=== PATIENT | male | born 1975 | race Caucasian/White ===

== ENCOUNTER 2024-03-18 09:33 | Outpatient (CLI) | payer BC, SELFPAY ==
[2024-03-18 18:35] LABS: Alanine Aminotransferase 60 U/L (12-78); Albumin Level 4.3 g/dl (3.5-5.0); Albumin/Globulin Ratio 1.6 (1.1-1.8); Alkaline Phosphatase 77 U/L (38-126); Anion Gap 14.9 mEq/L (5-15); Aspartate Amino Transferase 34 U/L (17-59); Bilirubin,Total 1.7 mg/dl (0.2-1.3); Blood Urea Nitrogen 19 mg/dl (9-20); Calcium 9.6 mg/dl (8.4-10.2); Carbon Dioxide 22 mmol/L (22.0-30.0); Chloride 104 mmol/L (98-107); Cholesterol 204 mg/dl (140-200); Estimated Glomerular Filt Rate 71 ml/min (>60); GFR (African American) 86 ML/MIN (>60); Globulin 2.7 g/dL (1.3-3.2); Glucose 158 mg/dl (74-100); HDL Cholesterol 34 mg/dl (40-60); Potassium 3.9 mmoL/L (3.5-5.1); Sodium 137 mmol/L (136-145)
[2024-03-18 18:40] LABS: Triglycerides 431 mg/dl (30-150)
[2024-03-18 18:46] LABS: Direct LDL Cholesterol 73.18 mg/dL (100-129)
[2024-03-18 18:49] LABS: Microalbumin/Creatinine Ratio 8.2
[2024-03-18 18:57] LABS: Creatinine,Urine Random 180 mg/dL (Not Estab.)
[2024-03-18 19:06] LABS: Thyroid Stimulating Hormone 2.92 uIU/mL (0.465-4.68)
== END 2024-03-18 23:59 | disposition home or self-care (01) ==
LOC: LAB.DROPOF 03-19 09:34
PROVIDERS: PCP Family Medicine; Visit Provider Family Medicine
DX: E11.9 Type 2 diabetes mellitus without complications (principal); Z79.84 Long term (current) use of oral hypoglycemic drugs; Z79.85 Long-term (current) use of injectable non-insulin antidiabetic drugs; I10 Essential (primary) hypertension; E66.9 Obesity, unspecified; Z68.39 Body mass index [BMI] 39.0-39.9, adult
CPT/HCPCS: 80053; 80061; 82043; 82570; 84443

== ENCOUNTER 2024-03-27 18:07 | Outpatient (CLI) | payer BC, SELFPAY ==
[2024-03-27 18:49] LABS: Anion Gap 17.9 mEq/L (5-15); Blood Urea Nitrogen 29 mg/dl (9-20); Calcium 9.7 mg/dl (8.4-10.2); Carbon Dioxide 23 mmol/L (22.0-30.0); Chloride 100 mmol/L (98-107); Estimated Glomerular Filt Rate 59 ml/min (>60); GFR (African American) 71 ML/MIN (>60); Glucose 165 mg/dl (74-100); Potassium 3.9 mmoL/L (3.5-5.1); Sodium 137 mmol/L (136-145)
== END 2024-03-27 23:59 | disposition home or self-care (01) ==
LOC: LAB.DROPOF 18:08
PROVIDERS: PCP Family Medicine; Visit Provider Family Medicine
DX: I10 Essential (primary) hypertension (principal)
CPT/HCPCS: 80048

== ENCOUNTER 2024-04-15 10:05 | Outpatient (CLI) | payer BC, SELFPAY ==
[2024-04-15 19:41] LABS: Anion Gap 15.4 mEq/L (5-15); Blood Urea Nitrogen 21 mg/dl (9-20); Calcium 9.8 mg/dl (8.4-10.2); Carbon Dioxide 25 mmol/L (22.0-30.0); Chloride 103 mmol/L (98-107); Estimated Glomerular Filt Rate 54 ml/min (>60); GFR (African American) 65 ML/MIN (>60); Glucose 139 mg/dl (74-100); Potassium 4.4 mmoL/L (3.5-5.1); Sodium 139 mmol/L (136-145)
== END 2024-04-15 23:59 | disposition home or self-care (01) ==
LOC: LAB.DROPOF 04-16 10:06
PROVIDERS: PCP Family Medicine; Visit Provider Family Medicine
DX: I10 Essential (primary) hypertension (principal); E66.9 Obesity, unspecified; Z68.39 Body mass index [BMI] 39.0-39.9, adult
CPT/HCPCS: 80048

== ENCOUNTER 2024-07-14 19:49 | Outpatient (CLI) | payer BC, SELFPAY ==
[2024-07-14 20:49] LABS: Alanine Aminotransferase 25 U/L (12-78); Albumin Level 4.2 g/dl (3.5-5.0); Albumin/Globulin Ratio 1.7 (1.1-1.8); Alkaline Phosphatase 68 U/L (38-126); Anion Gap 15.5 mEq/L (5-15); Aspartate Amino Transferase 24 U/L (17-59); Bilirubin,Total 1.7 mg/dl (0.2-1.3); Blood Urea Nitrogen 18 mg/dl (9-20); Carbon Dioxide 20 mmol/L (22.0-30.0); Chloride 107 mmol/L (98-107); Chol/HDL Ratio 4.3 (1-3.5); Cholesterol 137 mg/dl (140-200); Estimated Glomerular Filt Rate 71 ml/min (>60); GFR (African American) 86 ML/MIN (>60); Globulin 2.5 g/dL (1.3-3.2); Glucose 110 mg/dl (74-100); HDL Cholesterol 32 mg/dl (40-60); Potassium 4.5 mmoL/L (3.5-5.1); Sodium 138 mmol/L (136-145); Total Protein,Serum 6.7 g/dl (6.3-8.2); Triglycerides 176 mg/dl (30-150); VLDL Cholesterol 35 mg/dL (0-40)
[2024-07-14 20:59] LABS: Direct LDL Cholesterol 72.81 mg/dL (100-129)
[2024-07-14 21:17] LABS: Prostate Specific Ag Screen 1.2 ng/ml (0.0-4.0)
[2024-07-14 21:36] LABS: Hemoglobin A1C 5.8 % (4.0-6.0)
== END 2024-07-14 23:59 | disposition home or self-care (01) ==
LOC: LAB.DROPOF 19:51
PROVIDERS: PCP Family Medicine; Visit Provider Family Medicine
DX: E11.69 Type 2 diabetes mellitus with other specified complication (principal); Z12.5 Encounter for screening for malignant neoplasm of prostate; Z79.85 Long-term (current) use of injectable non-insulin antidiabetic drugs; Z79.84 Long term (current) use of oral hypoglycemic drugs
CPT/HCPCS: 80053; 80061; 83036; G0103

== ENCOUNTER 2024-09-11 08:37 | Day surgery (SDC) | payer BC, SELFPAY ==
[2024-09-09 12:50] VITALS: BMI 38.4
[2024-09-11 09:15] VITALS: BP 146/94; PULSE 86; RESP 16; TEMP 36.4; O2SAT 98
[2024-09-11] MEDS: LACTATED RINGERS 1000ML 1,000 ML 25 ML IV (09:24)
--- NOTE | 2024-09-11 10:17 | P.HP_ITS ---
History of Present Illness *Admission Date: 09/11/24 *Reason for visit:: Personal history of adenomatous colon polyps *History of present illness: Mr. Beyer is a 49-year-old gentleman with a personal history of adenomatous colon polyps and last colonoscopy just over 5 years ago who is here for surveillance colonoscopy. The examination is deemed medically necessary for surveillance colonoscopy. The patient has been seen, interviewed and examined prior to the procedure by both myself and the anesthesia provider. [facility] Disclaimer: The information contained in this section may have been updated after the patient was seen, as this information can be updated by other users. Medical History (Updated 09/11/24 @ 09:22 by Madina Pennington RN) History of COVID-19 Kidney stones Hyperlipidemia associated with type 2 diabetes mellitus Colonic polyp Obesity Hypertension Diabetes mellitus type II, controlled Surgical History H/O colonoscopy History of appendectomy History of cholecystectomy Family History (Updated 09/11/24 @ 09:22 by Madina Pennington RN) Other Prostate cancer Social History (Updated 09/11/24 @ 09:23 by Madina Pennington, RN) Smoking Status: Never smoker alcohol intake: never substance use type: denies use current occupational status: employed Travel in the last 8 weeks: None household members: spouse and children marital status: number of children: 5 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[employer], 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 [employer]: Yes Have you lived/traveled outside [place] in past 30 days?: No Contact w/someone who lives/traveled outside US past 30 days?: No Exposure to someone with infectious disease in past 14 days?: No Do you have a fever (greater than 100.4 F or 38 C)?: No Have you tested positive for COVID-19: No Exposed to someone with COVID-19 in past 14 days?: No Do you have a sore throat?: No Do you have a cough?: No Do you have any weakness?: No Are you experiencing any nausea/vomitting?: No Do you have any diarrhea?: No Are you experiencing any unusual bleeding?: No Do you have any muscle aches/pain?: No Do you have any abdominal pain?: No Are you experiencing loss of taste or smell?: No Other Medical History Have you received the Pneumonia Vaccine: No Review of Systems Review of Systems Review of systems (narrative): Negative *Cardiovascular Comments: Negative *Gastrointestinal Comments: Negative *Genitourinary Comments: Negative *Musculoskeletal Comments: Negative *Neurologic Comments: Negative Meds Home Medications and Allergies Home Medications ?Medication ?Instructions ?Recorded ?Confirmed ?Type atorvastatin 40 mg tablet (Lipitor) 40 mg PO DAILY #90 tabs 04/15/24 09/11/24 Rx lisinopril 20 mg tablet 20 mg PO DAILY #90 tabs 04/15/24 09/11/24 Rx semaglutide (weight loss) 0.5 0.5 mg (0.5 mL) SQ WEEKLY #6 mL 04/15/24 09/11/24 Rx mg/0.5 mL subcutaneous pen injector nebivolol 20 mg tablet 20 mg PO DAILY 07/15/24 09/11/24 History metformin 500 mg tablet 1,000 mg (2 x 500 mg) PO BID 30 08/18/24 09/11/24 Rx days #120 tabs sod picosulf 10 mg-magnes 3.5 175 ml PO DAILY Bowel Prep 2 doses 09/01/24 09/11/24 Rx gram-citric 12 gram/175 mL oral #350 mL solution (Clenpiq) New Prescriptions to Start Prescriptions: Allergies Allergy/AdvReac Type Severity Reaction Status Date / Time No Known Allergies Allergy Verified 09/11/24 09:13 Exam Data for Last 24 hours Vital signs and Labs for Last 24 Hours: Temp Pulse Resp BP Pulse Ox O2 Del Method 97.5 F L 86 16 146/94 H 98 Room Air 09/11/24 09:15 09/11/24 09:15 09/11/24 09:15 09/11/24 09:15 09/11/24 09:15 09/11/24 09:15 I & O for Last 24 hours: Intake & Output 09/08/24 09/09/24 09/10/24 09/11/24 23:59 23:59 23:59 23:59 Weight 260 lb *Routine HEENT Exam Head: Present normocephalic Eye: Present EOMI and PERRL ENT: Present mucous membranes moist *Routine Neck Exam Neck: Present supple *Routine Respiratory Exam Respiratory: Present CTA bilaterally *Routine Cardiovascular Exam Cardiovascular: Present RRR *Routine Abdominal Exam Abdominal: Present soft and normoactive bowel sounds; Absent tenderness *Routine Rectal Exam Rectal:: deferred *Routine Genitalia Exam Genitalia:: deferred *Routine Extremities Exam Extremities: Absent cyanosis, clubbing or edema *Routine Skin Exam Skin: Present warm; Absent rash *Routine Neurological Exam Neurological: Present alert and oriented X3 Assessment and Plan *Assessment and plan (1) Personal history of adenomatous and serrated colon polyps: Status: Acute Category: Medical Code(s): Z86.0101 - Personal history of adenomatous and serrated colon polyps Plan A/P: 1. Personal history of adenomatous colon polyps is the preprocedural diagnosis. The patient will be anesthetized/sedated using MAC sedation. The patient has been seen and examined. Cardiac and lung assessment prior to the examination is stable. Proceed with planned surveillance colonoscopy
--- NOTE | 2024-09-11 10:19 | P.PCN_ITS ---
[facility] Procedure Note Date: 09/11/24 Time: 10:42 Procedure Note:: Colonoscopy Procedure Report: Colonoscopy with cold snare polypectomy Endoscopist: Rob Dominguez II, MD Referring physician: Ganga Nance MD Date of Procedure: September 11, 2024 Equipment: Olympus 190 variable stiffness pediatric colonoscope Sedation: MAC sedation Indication: Mr. Beyer is a 49-year-old gentleman who is here for follow-up surveillance colonoscopy secondary to a personal history of adenomatous colon polyps. He had a colonoscopy in [place] (Reza Mclaughlin MD) 5 years ago at which time 3 polyps (tubular adenomas x 3) were removed. He does get some bowel irregularity with alternating diarrhea and constipation with some incomplete defecation. He does have a prior history of diverticulitis. He did have 1 bout of bright red rectal bleeding 6 months ago. He is trying to lose weight and had been on Ozempic. He has had prior cholecystectomy and appendectomy. He reports no mucus with his bowel movements and has no family history of colon cancer. His father and grandfather had prostate cancer. Procedure: Prior to the procedure, a history and physical exam was performed, and patient's medications and allergies were reviewed. The risks, benefits and alternatives of the sedation and procedure were discussed with the patient. All questions were answered and informed consent was obtained. The patient was brought to the procedure room. Patient identification and proposed procedure were verified by the physician and the nurse. The patient was placed in a left lateral decubitus position and the scope was passed under direct vision. Throughout the procedure, the patient's blood pressure, pulse, and oxygen saturations were monitored continuously. The colonoscopy was accomplished without difficulty. The patient tolerated the procedure well. Findings: On digital rectal examination there was normal rectal tone. There were no external hemorrhoids. The prostate was 2+, smooth, soft, symmetric without nodules. The colonoscope was introduced through the anal canal to the rectum and advanced to the cecum. The ileocecal valve and appendiceal orifice were identified. The scope was advanced a short distance into the ileum which appeared grossly normal. The scope was then withdrawn into the colon. There were 5 colon polyps (ascending x 1 (5 mm), transverse x 1 (4 mm), descending x 1 (5 mm) and rectal x 2 (3 and 5 mm). These were all removed via cold snare polypectomy. The remaining cecum, ascending and transverse colon and mucosa were grossly normal. There were scattered diverticuli throughout the descending and sigmoid colon (LEFT colon). The rectum itself was normal. Upon retroflexion within the rectum there were grade 2 internal hemorrhoids. The preparation was excellent throughout with Preemption Preparation Score of 9. The cecal time was 12 minutes. Impression: 1. Diminutive colonic polyps x 5 2. Left-sided diverticulosis 3. Grade 2 internal hemorrhoids Plan: I will follow-up the polyp histology and recommend repeat surveillance colonoscopy again in 3 to 5 years based upon pathology. I would encourage continuation of bulking fiber supplementation (psyllium/Konsyl) on a maintenance basis. I would continue the dietary measures as well.
--- NOTE | 2024-09-11 10:23 | EXP.ANES.CKL ---
[facility] Disclaimer: The information contained in this section may have been updated after the patient was seen, as this information can be updated by other users. Medical History (Updated 09/11/24 @ 09:22 by Madina Pennington RN) History of COVID-19 Kidney stones Hyperlipidemia associated with type 2 diabetes mellitus Colonic polyp Obesity Hypertension Diabetes mellitus type II, controlled Surgical History H/O colonoscopy History of appendectomy History of cholecystectomy Family History (Updated 09/11/24 @ 09:22 by Madina Pennington RN) Other Prostate cancer Social History (Updated 09/11/24 @ 09:23 by Madina Pennington RN) Smoking Status: Never smoker alcohol intake: never substance use type: denies use current occupational status: employed Travel in the last 8 weeks: None household members: spouse and children marital status: number of children: 5 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[employer], 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 [employer]: Yes Have you lived/traveled outside [place] in past 30 days?: No Contact w/someone who lives/traveled outside [place] past 30 days?: No Exposure to someone with infectious disease in past 14 days?: No Do you have a fever (greater than 100.4 F or 38 C)?: No Have you tested positive for COVID-19: No Exposed to someone with COVID-19 in past 14 days?: No Do you have a sore throat?: No Do you have a cough?: No Do you have any weakness?: No Are you experiencing any nausea/vomitting?: No Do you have any diarrhea?: No Are you experiencing any unusual bleeding?: No Do you have any muscle aches/pain?: No Do you have any abdominal pain?: No Are you experiencing loss of taste or smell?: No [facility] Anesthesia Checklist Patient Identification Patient Identification: Arm Band Structural Data Admitted From: Home Planned Operative Procedure/s: Colonoscopy Consent for Planned Operative Procedure(s) Verified: Yes Verified Documents: Surgical Consent and History and Physical NPO Status Verified Time NPO: 00:00 Additional verifications Anesthesia Reactions: No Airway Assessment Mallampati Score:: Class II C-Spine Mobility Assessed: Yes TMJ Mobility Assessed: Yes Dentition: Good Dentition Neurological Assessment Level of Consciousness: Awake, Alert and Appropriate Anesthesia Plan Anesthesia Risk discussed: Yes Anesthesia Plan: Verified ASA Class: III Anesthesia Type: MAC
[2024-09-11 10:24] VITALS: O2SAT 100
[2024-09-11 10:45] VITALS: BP 132/74; PULSE 93; RESP 18; TEMP 36.5; O2SAT 93
[2024-09-11 10:55] VITALS: BP 123/72; PULSE 93; RESP 18; O2SAT 93
[2024-09-11 11:04] VITALS: BP 137/84; PULSE 90; RESP 18; O2SAT 97
[2024-09-11 11:24] VITALS: BP 152/90; PULSE 90; RESP 18; O2SAT 97
[2024-09-11 16:44] LABS: POC Glucose,Bedside 142 (70-110)
== END 2024-09-11 11:50 | disposition home or self-care (01) ==
PROVIDERS: PCP Family Medicine; Visit Provider Internal Medicine Gastroenterology
PROC: (CPT 45385; principal; 2024-09-11 10:00)
DX: K63.5 Polyp of colon (principal); K57.30 Diverticulosis of large intestine without perforation or abscess without bleeding; K64.1 Second degree hemorrhoids; Z86.0101 Personal history of adenomatous and serrated colon polyps
CPT/HCPCS: 45385; 82962; J7120

== ENCOUNTER 2024-10-10 06:58 | Observation (INO) | payer BC, SELFPAY ==
[2024-10-10] VITALS (11 sets, daily range): BP systolic 105–136; BP diastolic 51–97; PULSE 83–100; RESP 14–20; TEMP 36.6–37.1; O2SAT 96–99; BMI 38.4; BMI 39.6
--- NOTE | 2024-10-10 07:10 | CT_ITS ---
FINAL REPORT TECHNIQUE: IV contrast enhanced exam This study was performed with techniques to keep radiation doses as low as reasonably achievable, (ALARA). Individualized dose reduction techniques using automated exposure control or adjustment of mA and/or kV according to the patient's size were employed. CLINICAL HISTORY: LLW pain tender COMPARISON: None FINDINGS: CT ABDOMEN PELVIS WITH CONTRAST: Abdomen: The gallbladder is absent and has been surgically resected. Liver has an unremarkable CT appearance. The spleen, pancreas and adrenal glands are unremarkable. There are nonobstructing renal stones noted bilaterally. There are also bilateral renal cysts noted. There are fluid-filled borderline dilated loops of jejunum, suspect ileus. Pelvis: There are significant inflammatory changes surrounding the descending/sigmoid colonic junction, centered around a dominant diverticulum, which measures 10 mm. IMPRESSION: Wall thickening and inflammatory changes in the distal colon, most likely secondary to diverticulitis. Recommend follow-up colonoscopy or CT. Fluid-filled borderline dilated small bowel, compatible with ileus. Reviewed, Interpreted and Dictated by Lawrence Figueroa MD Transcribed by Eliza Ordonez Authenticated and . [facility]
--- NOTE | 2024-10-10 07:11 | ED_ITS ---
Discharge Plan Disposition Chief Complaint: Abdominal Pain Prescriptions Prescriptions: No Action lisinopril 20 mg tablet 20 mg PO DAILY Qty: 90 3RF atorvastatin [Lipitor] 40 mg tablet 40 mg PO DAILY Qty: 90 3RF nebivolol 20 mg tablet 20 mg PO DAILY metformin 500 mg tablet 1,000 mg PO BID 30 Days Qty: 120 2RF Clenpiq 10 mg-3.5 gram- 12 gram/175 mL solution 175 ml PO DAILY 0 Days Qty: 350 0RF Rx Instructions: take first dose at 5-9PM evening before colonoscopy; 2nd dose the next day approximately 5 hrs before colonoscopy semaglutide (weight loss) 0.5 mg/0.5 mL pen injector 0.5 mg SQ WEEKLY Qty: 6 3RF metformin 500 mg tablet 1,000 mg PO BID Patient Comments: TAKE 2 TABLETS BY MOUTH TWICE DAILY Referrals Follow up/Referrals: Ganga Nance MD [Primary Care Provider] - See instructions Instructions Patient Instructions: DI for Acute Abdominal Pain Print Language Print Language: Thai Discharge ED Provider: Jasson Carrillo General Adult HPI General Chief complaint: Abdominal Pain Stated complaint: abd pain, history of diverticulitis Time Seen by Provider: 10/10/24 07:10 History of Present Illness HPI narrative: Patient is a 49-year-old male with past medical history of previous diverticulitis 10 years ago, recent colonoscopy last month at this institution who presents emergency department for evaluation of left lower quadrant abdominal pain. Onset was acute, over the last 24 hours, it is worse when he pushes on it. No vomiting, normal stooling. No dysuria reported. No other acute complaints at this time. Please note that above description of symptoms, in this electronic medical record under categorization of recalled from ER triage doctor by RN are reflective of an initial nursing assessment, however, is not reflective of my full history and physical exam that was personally taken and clarified. Consequentially, this preceding description of symptoms, which may include the patient's categorized chief complaint in the EMR, do not reflect my personal clinical impression, and the ultimate description of history of present illness and patient stated complaints should be deferred to this section of the note. Unless stated otherwise or congruent with this section of the note, additional signs, symptoms, or incongruence should be interpreted as inaccurate with my clinical impression. Related Data Home Medications ?Medication ?Instructions ?Recorded ?Confirmed nebivolol 20 mg tablet 20 mg PO DAILY 07/15/24 10/10/24 metformin 500 mg tablet 1,000 mg PO BID 10/10/24 10/10/24 Previous Rx's ?Medication ?Instructions ?Recorded atorvastatin 40 mg tablet (Lipitor) 40 mg PO DAILY #90 tabs 04/15/24 lisinopril 20 mg tablet 20 mg PO DAILY #90 tabs 04/15/24 metformin 500 mg tablet 1,000 mg (2 x 500 mg) PO BID 30 08/18/24 days #120 tabs sod picosulf 10 mg-magnes 3.5 175 ml PO DAILY Bowel Prep 2 doses 09/01/24 gram-citric 12 gram/175 mL oral #350 mL solution (Clenpiq) semaglutide (weight loss) 0.5 0.5 mg (0.5 mL) SQ WEEKLY #6 mL 10/01/24 mg/0.5 mL subcutaneous pen injector Allergies Allergy/AdvReac Type Severity Reaction Status Date / Time No Known Allergies Allergy Verified 10/10/24 07:19 [facility] Disclaimer: The information contained in this section may have been updated after the patient was seen, as this information can be updated by other users. Medical History (Updated 09/17/24 @ 19:21 by Ganga Nance MD) Tubular adenoma of colon History of COVID-19 Kidney stones Hyperlipidemia associated with type 2 diabetes mellitus Colonic polyp Obesity Hypertension Diabetes mellitus type II, controlled Surgical History H/O colonoscopy History of appendectomy History of cholecystectomy Family History (Updated 09/11/24 @ 09:22 by Madina Pennington, MARIIA) Other Prostate cancer Social History Smoking Status: Never smoker alcohol intake: never substance use type: denies use current occupational status: employed Travel in the last 8 weeks: None household members: spouse and children marital status: number of children: 5 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[employer], 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 caffeine: Yes Have you lived/traveled outside [place] in past 30 days?: No Contact w/someone who lives/traveled outside US past 30 days?: No Exposure to someone with infectious disease in past 14 days?: No Do you have a fever (greater than 100.4 F or 38 C)?: No Have you tested positive for COVID-19: No Exposed to someone with COVID-19 in past 14 days?: No Do you have a sore throat?: No Do you have a cough?: No Do you have any weakness?: No Do you have any diarrhea?: No Are you experiencing any unusual bleeding?: No Do you have any muscle aches/pain?: No Do you have any abdominal pain?: Yes Are you experiencing loss of taste or smell?: No Other Medical History Have you received the Pneumonia Vaccine: No ROS Obtained: Yes Systems reviewed as appropriate & no additional complaints except as documented Physical Exam General General appearance: alert and in no apparent distress Head Head exam: atraumatic and normocephalic Eye Eye exam: Present PERRL ENT ENT exam: Present mucous membranes moist Neck Neck exam: Present normal inspection Chest Chest inspection: Present normal inspection and symmetric chest wall rise Respiratory Respiratory exam: Present normal lung sounds bilaterally; Absent respiratory distress Cardiovascular Cardiovascular exam: Present regular rate and normal rhythm Abdominal Exam Abdominal exam: Present soft, tenderness (Left lower quadrant) and guarding (Voluntary); Absent distention, rebound or rigidity Extremities Exam Extremities exam: Present normal inspection Neurological Exam Neurological exam: Present alert Psychiatric Psychiatric exam: Present normal affect Skin Skin exam: Present warm and dry Medical Decision Making Medical Records Screening: Per USPSTF and CDC recommendations, given the prevalence of disease in our region, it is our hospital?s policy to screen for HIV and viral Hepatitis for all patients aged 18 and over and those with ongoing risk factors. Davian Inquiry Pt receiving controlled substance: No Vital Signs: 10/10/24 07:08 10/10/24 07:17 10/10/24 07:30 Temperature 98 F Temperature Source Oral Pulse Rate 100 H 93 H Pulse Rate [Left] 94 H Respiratory Rate 14 20 Blood Pressure 136/97 H Blood Pressure [Right Arm] 136/97 H Blood Pressure Mean Blood Pressure Mean [Right Arm] 110 Blood Pressure Source [Right Arm] Automatic Cuff Blood Pressure Position [Right Arm] Sitting 02 Sat by Pulse Oximetry 99 99 99 Oxygen Delivery Method Room Air 10/10/24 07:30 10/10/24 08:00 10/10/24 08:10 Temperature Temperature Source Pulse Rate 92 H Pulse Rate [Left] Respiratory Rate Blood Pressure 120/84 109/77 L 109/77 L Blood Pressure [Right Arm] Blood Pressure Mean 96 87 Blood Pressure Mean [Right Arm] Blood Pressure Source [Right Arm] Blood Pressure Position [Right Arm] 02 Sat by Pulse Oximetry 98 Oxygen Delivery Method 10/10/24 08:30 10/10/24 09:00 Temperature Temperature Source Pulse Rate 91 H 89 Pulse Rate [Left] Respiratory Rate Blood Pressure 113/83 118/79 Blood Pressure [Right Arm] Blood Pressure Mean 91 90 Blood Pressure Mean [Right Arm] Blood Pressure Source [Right Arm] Blood Pressure Position [Right Arm] 02 Sat by Pulse Oximetry 98 97 Oxygen Delivery Method Lab Data Lab Results 10/10/24 07:17: WBC 18.1 H, RBC 5.00, Hgb 14.7, Hct 40.8 L, MCV 81.6, MCH 29.4, MCHC 36.0 H, RDW 13.1, Plt Count 215, MPV 9.8, Neut % (Auto) 73.6, Lymph % (Auto) 15.3, [place] % (Auto) 9.0, Eos % (Auto) 1.4, Baso % (Auto) 0.3, Neut # (Auto) 13.3 H, Lymph # (Auto) 2.8, [place] # (Auto) 1.6 H, Eos # (Auto) 0.3, Baso # (Auto) 0.1, Total Counted 100, Neutrophils % (Manual) 66, Band Neutrophils % 5.0, Lymphocytes % (Manual) 15, Monocytes % (Manual) 13 H, Eosinophils % (Manual) 1, Platelet Estimate Normal, RBC Morphology Normal, Sodium 134 L, Potassium 4.0, Chloride 101, Carbon Dioxide 24, Anion Gap 13.0, BUN 15, Creatinine 1.20, Estimated Creat Clear 124, Estimated GFR 64, Est GFR ( Amer) 78, Glucose 162 H, Calcium 8.6, Total Bilirubin 2.5 H, AST 22, ALT 27, Alkaline Phosphatase 65, Total Protein 7.2, Albumin 4.5, Globulin 2.7, Albumin/Globulin Ratio 1.7, Lipase 120 10/10/24 07:21: Lactate 1.5 10/10/24 07:47: Urine Color Yellow, Urine Appearance Clear, Urine pH 6.0, Ur Specific [place] 1.010, Urine Protein Negative, Urine Glucose (UA) Negative, Urine Ketones Negative, Urine Blood Negative, Urine Nitrate Negative, Urine Bilirubin Negative, Urine Urobilinogen 0.2, Ur Leukocyte Esterase Negative, Urine RBC None, Urine WBC Occasional, Ur Squamous Epith Cells Occasional, Urine Bacteria None 10/10/24 07:17 10/10/24 07:17 Orders (Tests/Meds): ED MEDICATIONS Generic Name Dose Route Start Last Admin Trade Name Freq PRN Reason Stop Dose Admin Lactated Ringer's 1,000 mls @ 999 mls/hr 10/10/24 08:42 10/10/24 08:47 Lactated Ringer's 1000 Ml Bag IV 10/10/24 09:42 999 mls/hr .Q1H1M ONE Administration Sodium Chloride 10 ml 10/10/24 08:09 Sodium Chloride 0.9% 10ml Syr (Rad Only) IV 11/09/24 08:08 NEEDED PRN Maintain IV Site Discontinued Medications Generic Name Dose Route Start Last Admin Trade Name Freq PRN Reason Stop Dose Admin Piperacillin Sod/Tazobactam 100 mls @ 200 mls/hr 10/10/24 08:42 10/10/24 09:20 Sod 4.5 gm/ Sodium Chloride IV 10/10/24 09:11 200 mls/hr ONCE ONE Administration Iopamidol 75 ml 10/10/24 08:09 10/10/24 08:10 Iopamidol-370 (76%);100ml Bottle IV 10/10/24 08:10 75 ml ONCE ONE Administration Ketorolac Tromethamine 30 mg 10/10/24 07:10 10/10/24 07:24 Ketorolac 30mg/Ml Vial IV 10/10/24 07:11 30 mg ONCE ONE Administration Morphine Sulfate 4 mg 10/10/24 07:10 10/10/24 07:24 Morphine 4mg/Ml Syringe IV 10/10/24 07:11 4 mg ONCE ONE Administration Ondansetron HCl 4 mg 10/10/24 07:10 10/10/24 07:24 Ondansetron 4mg/2ml Vial IV 10/10/24 07:11 4 mg ONCE ONE Administration ORDERS Category Date Time Status CT abdomen pelvis w con Stat Cat Scan 10/10/24 07:10 Completed CBC w/Auto Diff [Complete Blood Count Auto Diff] Stat Lab 10/10/24 07:17 Completed CMP [Comprehensive Metabolic Panel] Stat Lab 10/10/24 07:17 Completed HIV Combo Stat Lab 10/10/24 07:17 Received Hepatitis C Ab Qual. W/ RFX Stat Lab 10/10/24 07:17 Received Lactic Acid Stat Lab 10/10/24 07:21 Completed Lipase Stat Lab 10/10/24 07:17 Completed UA [Urinalysis and Microscopic] Stat Lab 10/10/24 07:47 Completed Blood Culture Stat Micro 10/10/24 08:51 Received Medical Decision Narrative: In summary patient is a 49-year-old male past medical history described above who presents emergency department for evaluation of left lower quadrant abdominal pain. Patient is hemodynamically stable nontoxic-appearing upon arrival, afebrile. Patient is tender in his left lower quadrant on my exam and has a history of previous diverticulitis however he has recent colonic endoscopic evaluation as well. Differential includes diverticulitis, constipation, among others. Workup will be conducted with hematologic labs, CT abdomen pelvis IV contrast, urinalysis. Initial inventions include multimodal pain control. Patient appears largely euvolemic on my exam although aggressive sepsis bolus resuscitation was considered but we deferred. Patient is largely euvolemic although he is slightly tachycardic will start with 1 L crystalloid. Recent gastroenterology note on 09-11-2024 reviewed shows diminutive colonic polyps, left-sided diverticulosis and grade 2 internal hemorrhoids. Initial workup reviewed by me, white blood cell count 18.1, no NICKY or critical electrolyte abnormality. Total bilirubin is elevated however it has been elevated previously no evidence of obstructive hepatopathy and patient has previous cholecystectomy will defer further workup from that standpoint at this time given that he is not tender. CT imaging informally interpreted by me, contrast enhancement and stranding in the left lower quadrant. Zosyn will be initiated at this time. Formal CT read wall thickening inflammatory changes in the distal colon secondary to diverticulitis, fluid-filled borderline dilated small bowel compatible with ileus. Patient is still stooling so he does not have a complete ileus at this time and is likely secondary to inflammation in my opinion. Given moderate severity diverticulitis with a white count of 18 patient will benefit from admission to the hospital. Case was discussed with hospitalist regarding management they will admit the patient to their service for continued evaluation at this time. Director Internal Control disclaimer Much of this encounter note is an electronic gauge machine operator spoken language to printed text. Electronic gauge machine operator of the spoken language may permit errors. Although I have reviewed the note, some errors may still exist. Critical Care Critical Care Time Critical Care Time: Yes Attestation: On 10/10/24, the high probability of a clinically significant, sudden or life threatening deterioration of the following system(s) required my full and direct attention, intervention and personal management. The time I documented below is in addition to time spent performing reported procedures but includes the following listed in this critical care notation. Total Time Total Critical Care Time: 35
[2024-10-10] MEDS: ONDANSETRON 4MG/2ML VIAL 4 MG IV (07:24)
[2024-10-10] MEDS: MORPHINE 4MG/ML SYRINGE 4 MG IV ×3 (07:24→18:35)
[2024-10-10] MEDS: KETOROLAC 30MG/ML VIAL 30 MG IV (07:24)
[2024-10-10 07:44] LABS: Basophils # 0.1 K/mm3 (0-0.2); Basophils % 0.3 % (0.1-2.0); Eosinophils # 0.3 K/mm3 (0.0-0.4); Eosinophils % 1.4 % (0.1-12.0); Hematocrit 40.8 % (42.0-52.0); Hemoglobin 14.7 g/dL (14.1-18.0); Lymphocytes # 2.8 K/mm3 (0.7-4.5); Lymphocytes % 15.3 % (10-50); Mean Corpuscular Hemoglobin 29.4 pg (27.0-31.2); Mean Corpuscular Volume 81.6 fl (80-94); Mean Platelet Volume 9.8 fl (7.4-10.4); Monocytes # 1.6 K/mm3 (0.1-1.0); Neutrophils # 13.3 K/mm3 (1.8-7.8); Neutrophils % 73.6 % (37.0-80.0); Platelet Count 215 K/mm3 (142-424); Red Cell Distribution Width 13.1 % (11.5-17.5); White Blood Count 18.1 K/mm3 (4.8-10.8)
[2024-10-10 07:48] LABS: Albumin Level 4.5 g/dl (3.5-5.0); Chloride 101 mmol/L (98-107); Sodium 134 mmol/L (136-145)
[2024-10-10 07:51] LABS: Microscopic, Urine URINE MICROSCOPIC (MICROSCOPIC)
[2024-10-10 07:51] LABS: Alanine Aminotransferase 27 U/L (12-78); Albumin/Globulin Ratio 1.7 (1.1-1.8); Alkaline Phosphatase 65 U/L (38-126); Aspartate Amino Transferase 22 U/L (17-59); Bilirubin,Total 2.5 mg/dl (0.2-1.3); Blood Urea Nitrogen 15 mg/dl (9-20); Calcium 8.6 mg/dl (8.4-10.2); Carbon Dioxide 24 mmol/L (22.0-30.0); Creatinine Clearance Estimated 124 mL/min (50-200); Estimated Glomerular Filt Rate 64 ml/min (>60); GFR (African American) 78 ML/MIN (>60); Globulin 2.7 g/dL (1.3-3.2); Glucose 162 mg/dl (74-100); Lipase 120 U/L (23-300); MANUAL DIFFERENTIAL MANUAL DIFFERENTIAL (MANUAL DIFF); Total Protein,Serum 7.2 g/dl (6.3-8.2)
--- NOTE | 2024-10-10 08:02 | PC.NURSE ---
Called radiology to let them know pt's lab have returned and he is ready for ct scan
--- NOTE | 2024-10-10 08:03 | PC.NURSE ---
Notified Dr. Carrillo that pt triggers for severe sepsis with organ dysfunction d/t elevated wbc, hr, and billirubin with a suspected infection.
[2024-10-10] MEDS: IOPAMIDOL-370 (76%);100ML BOTTLE 75 ML IV (08:10)
[2024-10-10 08:41] LABS: Eosinophils % 1 % (0-3); Lymphocytes % 15 % (10-50); Monocytes % 13 % (2-9); Neutrophils % 66 % (42-76); Total Cells Counted 100
[2024-10-10 08:42] LABS: Appearance,Urine CLEAR (Clear); Bilirubin,Urine Negative (Negative); Blood, Urine Negative (Negative); Color,Urine YELLOW (Yellow); Glucose,Urine (UA) Negative (Negative); Ketones,Urine Negative (Negative); Leukocyte Esterase,Urine Negative (Negative); Nitrate,Urine Negative (Negative); Protein,Urine Negative (Negative); Urobilinogen,Urine 0.2 EU/dl (0.2)
[2024-10-10 08:42] LABS: Platelet Estimate Normal; RBC Morphology Normal
[2024-10-10] MEDS: LACTATED RINGERS 1000ML 1,000 ML 999 ML IV (08:47)
[2024-10-10 09:06] LABS: Lactic Acid 1.5 mmol/L (0.7-2.1)
[2024-10-10 09:09] LABS: Squamous Epithelial Cell,Urine Occasional #/hpf (0-5); WBC,Urine Occasional #/hpf (0-3)
--- NOTE | 2024-10-10 09:13 | PC.NURSE ---
second set of blood cultures collected and sent up to lab at this time. blue band placed on patient
[2024-10-10] MEDS: PIPERACILLIN/TAZO 4.5 GM in 0.9 % SODIUM CHLORIDE 100 ML IV (09:20)
[2024-10-10 09:24] LABS: HIV Combo NEGATIVE (Negative)
[2024-10-10 09:31] LABS: Hepatitis C Ab Qual. W/ RFX NEGATIVE (Negative)
--- NOTE | 2024-10-10 09:38 | PC.NURSE ---
HS aware of admission
--- NOTE | 2024-10-10 09:47 | HMH.PHAINT1 ---
Pharmacy Intervention Comments: MEDICATION RECONCILIATION COMPLETED ON PATIENT USING EXTERNAL FILL HISTORY FROM PHARMACY AND LIST FROM PCP OFFICE. -SINGH ZEPEDA, BLAKED
--- NOTE | 2024-10-10 09:49 | PC.NURSE ---
Called report to Gaby Kolb RN on Med/Surg
--- NOTE | 2024-10-10 10:02 | PC.NURSE ---
arrived by w/c from ED
[2024-10-10] MEDS: LACTATED RINGERS 1000ML 1,000 ML 75 ML IV (12:21)
--- NOTE | 2024-10-10 17:03 | PC.NURSE ---
LORENA and Germaine incompatible per Abelino with [facility]
[2024-10-10] MEDS: ACETAMINOPHEN 325MG TAB 650 MG PO (17:30)
[2024-10-10] MEDS: PIPERCILLIN/TAZO 3.375 GM in 0.9 % SODIUM CHLORIDE 50 ML IV (17:32)
--- NOTE | 2024-10-10 17:39 | P.HP_ITS ---
History of Present Illness *Admission Date: 10/10/24 *Reason for visit:: Abdominal pain *History of present illness: Familia Beyer is a 49-year-old male with a medical history significant for type 2 diabetes, hypertension, hyperlipidemia who presents with a few days of constipation and 2 days of worsening abdominal pain. He states he has been having new onset constipation for the past few days, has not really had this in the past. He started having lower abdominal pain yesterday, fevers of 101 Fahrenheit overnight, abdominal pain which significantly worsened into today prompting him to come to the ED. Denies nausea/vomiting, urinary symptoms, chest pain, shortness of breath. Workup in the ED significant for WBC 18.1, CT abdomen/pelvis revealing distal colon diverticulitis. He was given Zosyn. Case discussed with ED provider decision made to admit patient for sepsis secondary to diverticulitis. [facility] Disclaimer: The information contained in this section may have been updated after the patient was seen, as this information can be updated by other users. Medical History Tubular adenoma of colon History of COVID-19 Kidney stones Hyperlipidemia associated with type 2 diabetes mellitus Colonic polyp Obesity Hypertension Diabetes mellitus type II, controlled Surgical History H/O colonoscopy History of appendectomy History of cholecystectomy Family History Other Prostate cancer Social History (Updated 10/10/24 @ 10:19 by Amber Cordova RN) Smoking Status: Never smoker alcohol intake: never substance use type: denies use current occupational status: employed Travel in the last 8 weeks: None household members: spouse and children marital status: number of children: 5 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[employer], 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 caffeine: Yes Other Medical History Have you received the Flu Vaccine for this season: No Have you received the Pneumonia Vaccine: No Meds Home Medications and Allergies Home Medications ?Medication ?Instructions ?Recorded ?Confirmed ?Type atorvastatin 40 mg tablet (Lipitor) 40 mg PO DAILY #90 tabs 04/15/24 10/10/24 Rx lisinopril 20 mg tablet 20 mg PO DAILY #90 tabs 04/15/24 10/10/24 Rx nebivolol 20 mg tablet 20 mg PO DAILY 07/15/24 10/10/24 History semaglutide (weight loss) 0.5 0.5 mg (0.5 mL) SQ WEEKLY #6 mL 10/01/24 10/10/24 Rx mg/0.5 mL subcutaneous pen injector metformin 500 mg tablet 1,000 mg PO BID 10/10/24 10/10/24 History New Prescriptions to Start Prescriptions: Allergies Allergy/AdvReac Type Severity Reaction Status Date / Time No Known Allergies Allergy Verified 10/10/24 07:19 Exam Data for Last 24 hours Vital signs and Labs for Last 24 Hours: Temp Pulse Resp BP Pulse Ox O2 Del Method 98.3 F 83 17 113/56 L 98 Room Air 10/10/24 16:00 10/10/24 16:00 10/10/24 16:00 10/10/24 16:00 10/10/24 16:00 10/10/24 16:00 Laboratory Results - last 24 hr 10/10/24 07:17: WBC 18.1 H, RBC 5.00, Hgb 14.7, Hct 40.8 L, MCV 81.6, MCH 29.4, MCHC 36.0 H, RDW 13.1, Plt Count 215, MPV 9.8, Neut % (Auto) 73.6, Lymph % (Auto) 15.3, [place] % (Auto) 9.0, Eos % (Auto) 1.4, Baso % (Auto) 0.3, Neut # (Auto) 13.3 H, Lymph # (Auto) 2.8, [place] # (Auto) 1.6 H, Eos # (Auto) 0.3, Baso # (Auto) 0.1, Total Counted 100, Neutrophils % (Manual) 66, Band Neutrophils % 5.0, Lymphocytes % (Manual) 15, Monocytes % (Manual) 13 H, Eosinophils % (Manual) 1, Platelet Estimate Normal, RBC Morphology Normal, Sodium 134 L, Potassium 4.0, Chloride 101, Carbon Dioxide 24, Anion Gap 13.0, BUN 15, Creatinine 1.20, Estimated Creat Clear 124, Estimated GFR 64, Est GFR ( Amer) 78, Glucose 162 H, Calcium 8.6, Total Bilirubin 2.5 H, AST 22, ALT 27, Alkaline Phosphatase 65, Total Protein 7.2, Albumin 4.5, Globulin 2.7, Albumin/Globulin Ratio 1.7, Lipase 120, HCV Ab SEAN w/Rflx PCR Qn Negative, HIV Ag/Ab Combo Qual Negative 10/10/24 07:21: Lactate 1.5 10/10/24 07:47: Urine Color Yellow, Urine Appearance Clear, Urine pH 6.0, Ur Specific [place] 1.010, Urine Protein Negative, Urine Glucose (UA) Negative, Urine Ketones Negative, Urine Blood Negative, Urine Nitrate Negative, Urine Bilirubin Negative, Urine Urobilinogen 0.2, Ur Leukocyte Esterase Negative, Urine RBC None, Urine WBC Occasional, Ur Squamous Epith Cells Occasional, Urine Bacteria None I & O for Last 24 hours: Intake & Output 10/07/24 10/08/24 10/09/24 10/10/24 23:59 23:59 23:59 23:59 Intake Total 1370 / 1370 Output Total 0 / 0 Balance 1370 / 1370 Weight 121.88 kg Constitutional Constitutional: no acute distress and obese *Routine HEENT Exam Head: Present normocephalic Eye: Present EOMI and PERRL ENT: Present mucous membranes moist *Routine Neck Exam Neck: Present supple; Absent lymphadenopathy *Routine Respiratory Exam Respiratory: Present CTA bilaterally *Routine Cardiovascular Exam Cardiovascular: Present RRR *Routine Abdominal Exam Abdominal: Present soft and normoactive bowel sounds; Absent tenderness *Routine Rectal Exam Rectal:: deferred *Routine Genitalia Exam Genitalia:: deferred *Routine Extremities Exam Extremities: Absent cyanosis, clubbing or edema Comments: Left lower quadrant tenderness to palpation without peritoneal signs. *Routine Skin Exam Skin: Present warm; Absent rash *Routine Neurological Exam Neurological: Present alert and oriented X3 Assessment and Plan *Assessment and plan (1) Diverticulitis: Status: Acute Category: Medical Code(s): K57.92 - Diverticulitis of intestine, part unspecified, without perforation or abscess without bleeding Plan Familia Beyer is a 49-year-old male with a medical history significant for type 2 diabetes, hypertension, hyperlipidemia who presents with a few days of constipation and 2 days of worsening abdominal pain. He states he has been having new onset constipation for the past few days, has not really had this in the past. He started having lower abdominal pain yesterday, fevers of 101 Fahrenheit overnight, abdominal pain which significantly worsened into today prompting him to come to the ED. Denies nausea/vomiting, urinary symptoms, chest pain, shortness of breath. Workup in the ED significant for WBC 18.1, CT abdomen/pelvis revealing distal colon diverticulitis. He was given Zosyn. Case discussed with ED provider decision made to admit patient for sepsis secondary to diverticulitis. #Sepsis #Diverticulitis ? Worsening left lower quadrant abdominal pain, fevers overnight at home. ? CT abdomen/pelvis revealing diverticulitis, WBC 18.1 on admission. ? IV Zosyn day 09/02. ? Continue full liquid diet. Advance as tolerated. ? Will switch to oral ciprofloxacin, Flagyl once clinically improving. ? Follow-up CBC in the morning. #Type 2 diabetes ? Hemoglobin A1c 5.8 in June. Follow-up repeat A1c. ? Hold home metformin in the setting of sepsis. #Hypertension ? Hold BP meds in the setting of sepsis. BP stable at this time. Full code DVT prophylaxis: SCDs
[2024-10-11] MEDS: LACTATED RINGERS 1000ML 1,000 ML 75 ML IV (01:15)
[2024-10-11] MEDS: PIPERCILLIN/TAZO 3.375 GM in 0.9 % SODIUM CHLORIDE 50 ML IV ×2 (01:16→08:26)
[2024-10-11 04:00] VITALS: BMI 40.1
--- NOTE | 2024-10-11 07:51 | PC.NURSE ---
Pt. is alert and orientated x 4. Pt. on room air. Pt. had a good night. No c/o pain overnight. IV fluids infusing, antibiotics given. Pt. slept overnight. at bedside. VSS. personal items and call rowe in reach.
[2024-10-11 08:00] VITALS: BP 126/72; PULSE 98; RESP 18; TEMP 36.7; O2SAT 96
[2024-10-11 08:03] LABS: Basophils % 0.4 % (0.1-2.0); Eosinophils # 0.3 K/mm3 (0.0-0.4); Eosinophils % 3.1 % (0.1-12.0); Hematocrit 35.2 % (42.0-52.0); Hemoglobin 12.6 g/dL (14.1-18.0); Lymphocytes # 1.9 K/mm3 (0.7-4.5); Lymphocytes % 18.2 % (10-50); Mean Corpuscular HGB Conc 35.8 g/dL (31.8-35.4); Mean Corpuscular Hemoglobin 29.3 pg (27.0-31.2); Mean Corpuscular Volume 81.9 fl (80-94); Mean Platelet Volume 9.6 fl (7.4-10.4); Monocytes # 0.8 K/mm3 (0.1-1.0); Monocytes % 7.9 % (1.7-9.3); Neutrophils # 7.4 K/mm3 (1.8-7.8); Neutrophils % 70.1 % (37.0-80.0); Platelet Count 166 K/mm3 (142-424); Red Cell Distribution Width 12.8 % (11.5-17.5); White Blood Count 10.5 K/mm3 (4.8-10.8)
[2024-10-11 08:16] LABS: Albumin Level 3.8 g/dl (3.5-5.0); Chloride 101 mmol/L (98-107); Potassium 4.4 mmoL/L (3.5-5.1); Sodium 135 mmol/L (136-145)
[2024-10-11 08:19] LABS: Alanine Aminotransferase 24 U/L (12-78); Albumin/Globulin Ratio 1.6 (1.1-1.8); Alkaline Phosphatase 50 U/L (38-126); Aspartate Amino Transferase 22 U/L (17-59); Bilirubin,Total 3.1 mg/dl (0.2-1.3); Blood Urea Nitrogen 15 mg/dl (9-20); Calcium 8.3 mg/dl (8.4-10.2); Creatinine Clearance Estimated 62 mL/min (50-200); Estimated Glomerular Filt Rate 54 ml/min (>60); GFR (African American) 65 ML/MIN (>60); Globulin 2.4 g/dL (1.3-3.2); Glucose 146 mg/dl (74-100); Magnesium 1.3 mg/dl (1.6-2.3); Total Protein,Serum 6.2 g/dl (6.3-8.2)
[2024-10-11] MEDS: ENOXAPARIN 40MG/0.4ML SYRINGE 40 MG SUBCUT (08:25)
[2024-10-11 08:57] LABS: Anion Gap 12.4 mEq/L (5-15); Carbon Dioxide 26 mmol/L (22.0-30.0)
[2024-10-11] MEDS: MAGNESIUM SULFATE IN WATER 2 GM/50 ML PIGGYBACK IV ×3 (10:14→13:59)
--- NOTE | 2024-10-11 14:24 | EXP.DC.SUM ---
General Admission date:: 10/10/24 HPI HPI HPI: Familia Beyer is a 49-year-old male with a medical history significant for type 2 diabetes, hypertension, hyperlipidemia who presents with a few days of constipation and 2 days of worsening abdominal pain. He states he has been having new onset constipation for the past few days, has not really had this in the past. He started having lower abdominal pain yesterday, fevers of 101 Fahrenheit overnight, abdominal pain which significantly worsened into today prompting him to come to the ED. Denies nausea/vomiting, urinary symptoms, chest pain, shortness of breath. Workup in the ED significant for WBC 18.1, CT abdomen/pelvis revealing distal colon diverticulitis. He was given Zosyn. Case discussed with ED provider decision made to admit patient for sepsis secondary to diverticulitis. Hospital Course Hospital Course Hospital Course: Familia Beyer is a 49-year-old male with a medical history significant for type 2 diabetes, hypertension, hyperlipidemia who presents with a few days of constipation and 2 days of worsening abdominal pain. He states he has been having new onset constipation for the past few days, has not really had this in the past. He started having lower abdominal pain yesterday, fevers of 101 Fahrenheit overnight, abdominal pain which significantly worsened into today prompting him to come to the ED. Denies nausea/vomiting, urinary symptoms, chest pain, shortness of breath. Workup in the ED significant for WBC 18.1, CT abdomen/pelvis revealing distal colon diverticulitis. He was given Zosyn. Case discussed with ED provider decision made to admit patient for sepsis secondary to diverticulitis. #Sepsis #Diverticulitis ? Worsening left lower quadrant abdominal pain, fevers overnight at home. ? CT abdomen/pelvis revealing diverticulitis, WBC 18.1 on admission, improved to 10.5. ? Diverticulitis clinically improved with IV Zosyn for 2 days. Abdominal pain resolved, tolerating oral intake without nausea/vomiting/pain. ? Discharged with levofloxacin, metronidazole for 9 more days. ? Will follow-up with PCP within 1 week. #Elevated bilirubin ? Patient inquires about his elevated total bilirubin 3.1. Does have mild RUQ tenderness to palpation. ? Could be Gilbert's syndrome in the acute setting, patient advised to follow-up with his PCP for further evaluation and management, including considering RUQ ultrasound. #Type 2 diabetes #Obesity ? Hemoglobin A1c 5.8 in June. ? Continue home metformin, Ozempic. #Hypertension ? Continue home regimen. Exam Data for Last 24 hours Vital signs and Labs for Last 24 Hours: Temp Pulse Resp BP Pulse Ox O2 Del Method 98.0 F 98 H 18 126/72 96 Room Air 10/11/24 08:00 10/11/24 08:00 10/11/24 08:00 10/11/24 08:00 10/11/24 08:00 10/11/24 13:00 Laboratory Results - last 24 hr 10/11/24 07:53: WBC 10.5 D, RBC 4.30 L, Hgb 12.6 L, Hct 35.2 L, MCV 81.9, MCH 29.3, MCHC 35.8 H, RDW 12.8, Plt Count 166, MPV 9.6, Neut % (Auto) 70.1, Lymph % (Auto) 18.2, [place] % (Auto) 7.9, Eos % (Auto) 3.1, Baso % (Auto) 0.4, Neut # (Auto) 7.4, Lymph # (Auto) 1.9, [place] # (Auto) 0.8, Eos # (Auto) 0.3, Baso # (Auto) 0.0, Sodium 135 L, Potassium 4.4, Chloride 101, Carbon Dioxide 26, Anion Gap 12.4, BUN 15, Creatinine 1.40 H, Estimated Creat Clear 62, Estimated GFR 54 L, Est GFR ( Amer) 65, Glucose 146 H, Calcium 8.3 L, Magnesium 1.3 L, Total Bilirubin 3.1 H, AST 22, ALT 24, Alkaline Phosphatase 50, Total Protein 6.2 L, Albumin 3.8 D, Globulin 2.4, Albumin/Globulin Ratio 1.6 I & O for Last 24 hours: Intake & Output 10/08/24 10/09/24 10/10/24 10/11/24 23:59 23:59 23:59 23:59 Intake Total 2034 Output Total 0 / 0 0 / 0 Balance 2034 Weight 121.88 kg 122.742 kg Microbiology Reports for the Last 24 Hours: Microbiology 10/10/24 08:51 Blood Blood Culture - Preliminary NO GROWTH AFTER 24 HOURS 10/10/24 08:51 Blood Blood Culture - Preliminary NO GROWTH AFTER 24 HOURS Constitutional Constitutional: no acute distress and obese *Routine HEENT Exam Head: Present normocephalic Eye: Present EOMI and PERRL ENT: Present mucous membranes moist *Routine Neck Exam Neck: Present supple; Absent lymphadenopathy *Routine Respiratory Exam Respiratory: Present CTA bilaterally *Routine Cardiovascular Exam Cardiovascular: Present RRR *Routine Abdominal Exam Abdominal: Present soft, normoactive bowel sounds and tenderness *Routine Extremities Exam Extremities: Absent cyanosis, clubbing or edema *Routine Skin Exam Skin: Present warm; Absent rash *Routine Neurological Exam Neurological: Present alert and oriented X3 Results Data Completed and Pending Labs on day of discharge: Labs from last 24 hours 10/11/24 07:53 WBC 10.5 D RBC 4.30 L Hgb 12.6 L Hct 35.2 L MCV 81.9 MCH 29.3 MCHC 35.8 H RDW 12.8 Plt Count 166 MPV 9.6 Neut % (Auto) 70.1 Lymph % (Auto) 18.2 [place] % (Auto) 7.9 Eos % (Auto) 3.1 Baso % (Auto) 0.4 Neut # (Auto) 7.4 Lymph # (Auto) 1.9 [place] # (Auto) 0.8 Eos # (Auto) 0.3 Baso # (Auto) 0.0 Sodium 135 L Potassium 4.4 Chloride 101 Carbon Dioxide 26 Anion Gap 12.4 BUN 15 Creatinine 1.40 H Estimated Creat Clear 62 Estimated GFR 54 L Est GFR ( Amer) 65 Glucose 146 H Calcium 8.3 L Magnesium 1.3 L Total Bilirubin 3.1 H AST 22 ALT 24 Alkaline Phosphatase 50 Total Protein 6.2 L Albumin 3.8 D Globulin 2.4 Albumin/Globulin Ratio 1.6 Preliminary micro results at discharge 10/10/24 08:51 Blood Culture - Preliminary Blood NO GROWTH AFTER 24 HOURS 10/10/24 08:51 Blood Culture - Preliminary Blood NO GROWTH AFTER 24 HOURS DS: Diagnosis Discharge Diagnosis (1) Diverticulitis: Status: Acute Code(s): K57.92 - Diverticulitis of intestine, part unspecified, without perforation or abscess without bleeding Meds Home Medications and Allergies Home Medications ?Medication ?Instructions ?Recorded ?Confirmed ?Type lisinopril 20 mg tablet 20 mg PO DAILY #90 tabs 04/15/24 10/10/24 Rx nebivolol 20 mg tablet 20 mg PO DAILY 07/15/24 10/10/24 History semaglutide (weight loss) 0.5 0.5 mg (0.5 mL) SQ WEEKLY #6 mL 10/01/24 10/10/24 Rx mg/0.5 mL subcutaneous pen injector metformin 500 mg tablet 1,000 mg PO BID 10/10/24 10/10/24 History atorvastatin 40 mg tablet (Lipitor) 40 mg PO HS 10/11/24 10/11/24 History levofloxacin 750 mg tablet 750 mg PO DAILY 9 days #9 tabs 10/11/24 Rx metronidazole 500 mg tablet 500 mg PO BID 9 days #18 tabs 10/11/24 Rx New Prescriptions to Start Prescriptions: levofloxacin Jovani Lou metronidazole Jovani Lou Allergies Allergy/AdvReac Type Severity Reaction Status Date / Time No Known Allergies Allergy Verified 10/10/24 07:19 Discharge Plan Disposition Patient Disposition: Home, Self-Care Condition: Fair Follow up Plan Follow up with: Ganga Nance MD [Primary Care Provider] - 10/17/24 2:20 pm Prescriptions/Medication Reconciliation: New levofloxacin 750 mg tablet 750 mg PO DAILY 9 Days Qty: 9 0RF metronidazole 500 mg tablet 500 mg PO BID 9 Days Qty: 18 0RF Continued lisinopril 20 mg tablet 20 mg PO DAILY Qty: 90 3RF nebivolol 20 mg tablet 20 mg PO DAILY semaglutide (weight loss) 0.5 mg/0.5 mL pen injector 0.5 mg SQ WEEKLY Qty: 6 3RF metformin 500 mg tablet 1,000 mg PO BID Patient Comments: TAKE 2 TABLETS BY MOUTH TWICE DAILY atorvastatin [Lipitor] 40 mg tablet 40 mg PO HS Problem Reconciliation Problems Reviewed?: Yes Patient Discharge Instructions Patient Instructions: Diverticulitis Print Language: Macanese Providers Primary Care Provider: Ganga Nance Admit Provider: Jovani Lou Attending Provider: Jovani Lou
[2024-10-11 15:29] LABS: Bilirubin,Direct 0.5 mg/dl (0.0-0.4); Gamma Glutamyl Transpeptidase 25 U/L (15-73)
--- NOTE | 2024-10-14 11:02 | SW/DCPLANNER ---
Spoke with patient on the phone. Patient stated that he is doing pretty good. Patient stated that he is aware of his upcoming appointment. Patient stated that he was able to pickle sorter his new medicine from [employer]. Patient stated that he has no concern or questions at this time. Luiz Guadarrama
== END 2024-10-11 15:26 | disposition home or self-care (01) ==
LOC: ER 07:15 → 2ND 09:44
PROVIDERS: Admitting Provider Student in an Organized Health Care Education/Training Program; Emergency Provider Emergency Medicine; PCP Family Medicine; Visit Provider Student in an Organized Health Care Education/Training Program
DX: K57.92 Diverticulitis of intestine, part unspecified, without perforation or abscess without bleeding (principal); A41.9 Sepsis, unspecified organism; I10 Essential (primary) hypertension; E11.9 Type 2 diabetes mellitus without complications; E66.9 Obesity, unspecified; E78.5 Hyperlipidemia, unspecified; Z79.84 Long term (current) use of oral hypoglycemic drugs; Z79.899 Other long term (current) drug therapy; Z79.02 Long term (current) use of antithrombotics/antiplatelets; Z68.41 Body mass index [BMI] 40.0-44.9, adult; Z79.85 Long-term (current) use of injectable non-insulin antidiabetic drugs
CPT/HCPCS: 36415; 74177; 80053; 81001; 82248; 82977; 83605; 83690; 83735; 85007; 85025; 86803; 87040; 87389; 99291; G0378; J1650; J1885; J2270; J2405; J2543; J3475; J7120; Q9967

== ENCOUNTER 2024-10-20 10:00 | Outpatient (CLI) | payer BC, SELFPAY ==
[2024-10-20 19:22] LABS: Basophils # 0.1 K/mm3 (0-0.2); Basophils % 0.6 % (0.1-2.0); Eosinophils # 0.3 K/mm3 (0.0-0.4); Eosinophils % 3.4 % (0.1-12.0); Hematocrit 44.6 % (42.0-52.0); Hemoglobin 15.6 g/dL (14.1-18.0); Lymphocytes # 2.5 K/mm3 (0.7-4.5); Lymphocytes % 25.9 % (10-50); Mean Corpuscular Hemoglobin 29.7 pg (27.0-31.2); Monocytes # 0.8 K/mm3 (0.1-1.0); Monocytes % 8.2 % (1.7-9.3); Neutrophils # 5.9 K/mm3 (1.8-7.8); Neutrophils % 61.5 % (37.0-80.0); Platelet Count 308 K/mm3 (142-424); Red Blood Count 5.25 M/mm3 (4.60-6.20); Red Cell Distribution Width 13.9 % (11.5-17.5); White Blood Count 9.5 K/mm3 (4.8-10.8)
[2024-10-20 22:48] LABS: Alanine Aminotransferase 70 U/L (12-78); Albumin Level 4.5 g/dl (3.5-5.0); Alkaline Phosphatase 67 U/L (38-126); Anion Gap 13.2 mEq/L (5-15); Aspartate Amino Transferase 36 U/L (17-59); Bilirubin,Total 1.4 mg/dl (0.2-1.3); Blood Urea Nitrogen 16 mg/dl (9-20); Calcium 9.3 mg/dl (8.4-10.2); Carbon Dioxide 23 mmol/L (22.0-30.0); Chloride 106 mmol/L (98-107); Cholesterol 113 mg/dl (140-200); Estimated Glomerular Filt Rate 71 ml/min (>60); GFR (African American) 86 ML/MIN (>60); Globulin 2.2 g/dL (1.3-3.2); Glucose 120 mg/dl (74-100); HDL Cholesterol 28 mg/dl (40-60); Potassium 4.2 mmoL/L (3.5-5.1); Sodium 138 mmol/L (136-145); Total Protein,Serum 6.7 g/dl (6.3-8.2); Triglycerides 185 mg/dl (30-150); VLDL Cholesterol 37 mg/dL (0-40)
[2024-10-20 22:59] LABS: Direct LDL Cholesterol 37.89 mg/dL (100-129)
== END 2024-10-20 23:59 | disposition home or self-care (01) ==
LOC: LAB.DROPOF 10-21 17:28
PROVIDERS: PCP Family Medicine; Visit Provider Family Medicine
DX: K57.92 Diverticulitis of intestine, part unspecified, without perforation or abscess without bleeding (principal); E11.9 Type 2 diabetes mellitus without complications; I10 Essential (primary) hypertension
CPT/HCPCS: 80053; 80061; 83036; 85025

== ENCOUNTER 2025-02-02 11:08 | Outpatient (CLI) | payer BC, SELFPAY ==
[2025-02-02 18:05] LABS: Basophils # 0.1 K/mm3 (0-0.2); Basophils % 0.6 % (0.1-2.0); Eosinophils # 0.3 Kmm3 (0.0-0.4); Hematocrit 41.5 % (42.0-52.0); Hemoglobin 14.6 g/dL (14.1-18.0); Immature Granulocytes # 0.05 10^3uL; Immature Granulocytes % 0.6 %; Lymphocytes # 1.9 K/mm3 (0.7-4.5); Lymphocytes % 22.7 % (10-50); Mean Corpuscular HGB Conc 35.2 g/dL (31.8-35.4); Mean Corpuscular Hemoglobin 30.4 pg (27.0-31.2); Mean Corpuscular Volume 86.3 fl (80-94); Mean Platelet Volume 10.5 fl (7.4-10.4); Monocytes # 0.7 K/mm3 (0.1-1.0); Monocytes % 7.8 % (1.7-9.3); Neutrophils # 5.4 K/mm3 (1.8-7.8); Neutrophils % 64.3 % (37.0-80.0); Nucleated Red Blood Cells # 0 10^3/uL; Nucleated Red Blood Cells % 0 %; Platelet Count 216 K/mm3 (142-424); Red Blood Count 4.81 M/mm3 (4.60-6.20); Red Cell Distribution Width 13.5 % (11.5-17.5); Red Cell Distribution Width-SD 41.6 fL; White Blood Count 8.5 K/mm3 (4.8-10.8)
[2025-02-02 19:20] LABS: Hemoglobin A1C 6.4 % (4.0-6.0)
[2025-02-02 20:02] LABS: Alanine Aminotransferase 37 U/L (12-78); Albumin Level 4.1 g/dl (3.5-5.0); Albumin/Globulin Ratio 1.6 (1.1-1.8); Alkaline Phosphatase 65 U/L (38-126); Anion Gap 12.8 mEq/L (5-15); Aspartate Amino Transferase 29 U/L (17-59); Calcium 8.6 mg/dl (8.4-10.2); Carbon Dioxide 20 mmol/L (22.0-30.0); Chloride 106 mmol/L (98-107); Chol/HDL Ratio 5.5 (1-3.5); Cholesterol 175 mg/dl (140-200); Globulin 2.5 g/dL (1.3-3.2); Glucose 133 mg/dl (74-100); HDL Cholesterol 32 mg/dl (40-60); Potassium 3.8 mmoL/L (3.5-5.1); Sodium 135 mmol/L (136-145); Total Protein,Serum 6.6 g/dl (6.3-8.2); Triglycerides 347 mg/dl (30-150); Uric Acid 6.5 mg/dl (3.5-8.5); VLDL Cholesterol 69 mg/dL (0-40)
[2025-02-02 20:27] LABS: Blood Urea Nitrogen 25 mg/dl (9-20); Estimated Glomerular Filt Rate 64 ml/min (>60); GFR (African American) 78 ML/MIN (>60)
--- OUTSIDE RECORDS SUMMARY | 2025-02-03 14:10 | XMS_ITS | Clinical Summary ---
Author Organization Healthcare Address [address] 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 Name Role Phone Susana Albarran MD Primary Care Provider [phone] Allergies No known active allergies Social History Tobacco Use Types Packs/Day Years Used Date Smoking Tobacco: Never Assessed Sex and Gender Information Value Date Recorded Sex Assigned at Not on file Legal Sex Male 12:17 AM EST Gender Identity Not on file Sexual Orientation Not on file Last Filed Vital Signs Vital Sign Reading Time Taken Comments Blood Pressure 131/99 08/14/2022 5:00 AM EST Pulse 100 08/14/2022 5:00 AM EST Temperature 37.1 C (98.7 F) 08/14/2022 1:52 AM EST Respiratory Rate 19 08/14/2022 5:00 AM EST Oxygen Saturation 98% 08/14/2022 5:00 AM EST Inhaled Oxygen Concentration - - Weight 135 kg (298 lb 4.5 oz) 08/14/2022 1:52 AM EST Height - - Body Mass Index - - Plan of Treatment Not on file Insurance [employer] Care Teams 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
--- OUTSIDE RECORDS SUMMARY | 2025-02-03 14:10 | XMS_ITS | Data Portability ---
Author Organization [facility] TIO Walls [place] CLOS[facility] Address [address] [place] [address] Assessment Encounter Date Assessment Date Assessment LastModified by Organization Details LastModified Time 09/11/2017 09/11/2017 We discussed testosterone replacement therapy options. He will return to the office in 1.5 weeks with testosterone level, CBC, CMP, PSA, estrogen. He'll be called with results and further plans pending laboratories. Trial of Sildenafil. [email or web address] Not available 09/11/2017 10:55:45 Plan of Treatment Reminders Order Date Submit Date Provider Last Modified By Organization Details Last Modified Time Details Appointments None recorded. Lab CBC 2017 018 [facility], [address] [place] [address], [phone], 8 22:49:27 testostero ne, total, serum 2017 018 [facility], [address] [place] [address], [address], 8 21:03:37 estrogen, total, serum 2017 018 [facility], [address] [place] [address], [address], 8 00:00:32 CMP, serum or plasma 2017 018 [facility], [address] [place] [address], [phone], 8 22:20:22 PSA, serum or plasma 2017 018 [facility], [address], [address], [place], [address], 8 09:33:53 testostero ne, free, serum 2017 018 [facility], [facility], [place], [address], 8 11:25:40 Referral None recorded. Procedures None recorded. Surgeries None recorded. Imaging None recorded. Medication Orders Depo-Testo sterone 200 mg/mL intramuscu lar oil 2017 018 [email or web address] 4 Not available 8 16:53:01 Depo-Testo sterone 200 mg/mL intramuscu lar oil 2017 018 [email or web address] 4 Not available 8 10:31:38 Depo-Testo sterone 200 mg/mL intramuscu lar oil 2017 018 [email or web address] 4 [id number], [address] [place] [address], [id number], 8 10:59:42 Depo-Testo sterone 200 mg/mL intramuscu lar oil 2016 017 [email or web address] [id number], [address] [place] [address], [id number], 7 13:48:17 Patient TargetsNo targets recorded. Patient Instructions Encounter Date Encounter Id Patient Instructions Last Modified By Organization Details Last Modified Time 09/11/2017 [id number] healthy together [email or web address] Not availa ble 09/11/2017 10:54:27 Reason for Referral None Reported. Results Created Date Observation Date Name Description Value Unit Range Abnormal Flag Note LastModifiedBy Organization Detail LastModifiedTime 09/20/19 18 09/20/2017 testo stero ne, total , serum testosterone , total 747.4 NG/dL 249.0- 836.0 normal Refer ence range is for age 20 to 49 years . Not Available [facility] [address] [place] [address], [phone], 09/20/2017 21:03:37 09/20/19 18 09/20/2017 CMP, serum or plasm a glucose 134 mg/dL 74-100 high Not Available [facility] [address] [place] [address], [address], 09/21/2017 07:01:15 09/20/19 18 09/20/2017 CMP, serum or plasm a blood urea nitrogen 13 mg/dL 6-20 normal Not Available [facility] [address] [place] [address], [address], 09/21/2017 07:01:15 09/20/19 18 09/20/2017 CMP, serum or plasm a creatinine 1.42 mg/dL 0.70-1 .25 high Not Available [facility] [address] [place] [address], [address], 09/21/2017 07:01:15 09/20/19 18 09/20/2017 CMP, serum or plasm a BUN/creatini ne ratio 9 (calc ) 10-20 low Not Available [facility] [address] [place] [address], [address], 09/21/2017 07:01:15 09/20/19 18 09/20/2017 CMP, serum or plasm a GFR 70 >= 60 normal Not Available [facility] [address] [place] [address], [address], 09/21/2017 07:01:15 09/20/19 18 09/20/2017 CMP, serum or plasm a GFR non- 60 >= 60 normal NOT E NEW calcu latio n for GFR is based on the Natio nal Kidne y Found ation CKD-E PI equat ion and allow s for repor ting GFR value s great er than 60 mL/mi n/1.7 3 m2. This calcu latio n has not been valid ated for patie nts less than 18 yrs., pregn ant women and Hispa nics. Chron ic kidne y disea se is defin ed as kidne y damag e or GFR less than 60 mL/mi n/1.7 3 m2 for 3 month s or longe r. . Not Available [facility] [address] [place] [address], [address], 09/21/2017 07:01:15 09/20/19 18 09/20/2017 CMP, serum or plasm a sodium 138 mmol/ L 136-14 5 normal Not Available [facility] [address] [place] [address], [address], 09/21/2017 07:01:15 09/20/19 18 09/20/2017 CMP, serum or plasm a potassium 3.9 mmol/ L 3.4-5. 0 normal Not Available [facility] [address] [place] [address], [phone], 09/21/2017 07:01:15 09/20/19 18 09/20/2017 CMP, serum or plasm a chloride 95 mmol/ L 98-107 low Not Available [facility] [address] [place] [address], [address], 09/21/2017 07:01:15 09/20/19 18 09/20/2017 CMP, serum or plasm a carbon dioxide 25 mmol/ L 20-32 normal Not Available [facility] [address] [place] [address], [address], 09/21/2017 07:01:15 09/20/19 18 09/20/2017 CMP, serum or plasm a anion gap 18 (calc ) 7-25 normal Not Available [facility] [address] [place] [address], [address], 09/21/2017 07:01:15 09/20/19 18 09/20/2017 CMP, serum or plasm a calcium 9.6 mg/dL 8.6-10 .2 normal Not Available [facility] [address] [place] [address], [address], 09/21/2017 07:01:15 09/20/19 18 09/20/2017 CMP, serum or plasm a total protein 7.3 g/dL 6.4-8. 3 normal Not Available [facility] [address] [place] [address], [address], 09/21/2017 07:01:15 09/20/19 18 09/20/2017 CMP, serum or plasm a albumin 4.3 g/dL 3.5-5. 2 normal Not Available [facility] [address] [place] [address], [address], 09/21/2017 07:01:15 09/20/19 18 09/20/2017 CMP, serum or plasm a globulin 3.0 g/dL_ (calc ) 1.5-4. 5 normal Not Available [facility] [address] [place] [address], [address], 09/21/2017 07:01:15 09/20/19 18 09/20/2017 CMP, serum or plasm a albumin/glob ulin ratio 1.4 (calc ) 1.1-2. 5 normal Not Available [facility] [address] [place] [address], [address], 09/21/2017 07:01:15 09/20/19 18 09/20/2017 CMP, serum or plasm a bilirubin, total 2.0 mg/dL 0.1-1. 2 high Pleas e notif y the Lab at 258-4 150 if fract ionat ed Bilir ubin is marco ed. Not Available [facility] [address] [place] [address], [address], 09/21/2017 07:01:15 09/20/19 18 09/20/2017 CMP, serum or plasm a alkaline phosphatase 63 U/L 40-130 normal Not Available [facility] [address] [place] [address], [address], 09/21/2017 07:01:15 09/20/19 18 09/20/2017 CMP, serum or plasm a AST - U/L 0-40 abnormal Unabl e to obtai n resul t due to hemol ysis. QNS FOR SEND OUT Not Available [facility] [address] [place] [address], [address], 09/21/2017 07:01:15 09/20/19 18 09/20/2017 CMP, serum or plasm a ALT 33 U/L 0-41 normal Not Available [facility] [address] [place] [address], [address], 09/21/2017 07:01:15 09/20/19 18 09/20/2017 CBC w/ auto diff white blood cells 12.1 K/uL 3.8-10 .8 high Not Available [facility] [address] [place] [address], [address], 09/20/2017 22:49:27 09/20/19 18 09/20/2017 CBC w/ auto diff red blood cells 5.77 M/uL 4.20-5 .80 normal Not Available [facility] [address] [place] [address], [address], 09/20/2017 22:49:27 09/20/19 18 09/20/2017 CBC w/ auto diff hemoglobin 17.9 g/dL 14.0-1 8.0 normal Not Available [facility] [address] [place] [address], [address], 09/20/2017 22:49:27 09/20/19 18 09/20/2017 CBC w/ auto diff hematocrit 50.7 % 40.0-5 2.0 normal Not Available [facility] [address] [place] [address], [address], 09/20/2017 22:49:27 09/20/19 18 09/20/2017 CBC w/ auto diff MCV 88 fL 80-100 normal Not Available [facility] [address] [place] [address], [address], 09/20/2017 22:49:27 09/20/19 18 09/20/2017 CBC w/ auto diff MCH 31 pg 26-35 normal Not Available [facility] [address] [place] [address], [address], 09/20/2017 22:49:27 09/20/19 18 09/20/2017 CBC w/ auto diff MCHC 35 g/dL 32-36 normal Not Available [facility] [address] [place] [address], [address], 09/20/2017 22:49:27 09/20/19 18 09/20/2017 CBC w/ auto diff RDW 14.1 % 11.0-1 5.0 normal Not Available [facility] [address] [place] [address], [address], 09/20/2017 22:49:27 09/20/19 18 09/20/2017 CBC w/ auto diff MPV 9.1 fL 6.2-10 .5 normal Not Available [facility] [address] [place] [address], [address], 09/20/2017 22:49:27 09/20/19 18 09/20/2017 CBC w/ auto diff platelet count 231 K/uL 130-40 0 normal Not Available [facility] [address] [place] [address], [address], 09/20/2017 22:49:27 09/20/19 18 09/20/2017 CBC w/ auto diff neutrophil,a bsolute 8.8 K/uL 1.6-8. 4 high Not Available [facility] [address] [place] [address], [address], 09/20/2017 22:49:27 09/20/19 18 09/20/2017 CBC w/ auto diff lymphocyte,a bsolute 1.8 K/uL 0.4-5. 1 normal Not Available [facility] [address] [place] [address], [address], 09/20/2017 22:49:27 09/20/19 18 09/20/2017 CBC w/ auto diff monocyte,abs olute 1.0 K/uL 0.0-1. 2 normal Not Available [facility] [address] [place] [address], [address], 09/20/2017 22:49:27 09/20/19 18 09/20/2017 CBC w/ auto diff eosinophil,a bsolute 0.4 K/uL 0.0-0. 8 normal Not Available [facility] [address] [place] [address], [address], 09/20/2017 22:49:27 09/20/19 18 09/20/2017 CBC w/ auto diff basophil,abs olute 0.0 K/uL 0.0-0. 3 normal Not Available [facility] [address] [place] [address], [address], 09/20/2017 22:49:27 09/20/19 18 09/20/2017 CBC w/ auto diff % neutrophils 69.0 % 42.0-7 8.0 normal Not Available [facility] [address] [place] [address], [address], 09/20/2017 22:49:27 09/20/19 18 09/20/2017 CBC w/ auto diff % lymphocytes 15.0 % 11.0-4 7.0 normal Not Available [facility] [address] [place] [address], [address], 09/20/2017 22:49:27 09/20/19 18 09/20/2017 CBC w/ auto diff % monocytes 8.0 % 0.0-11 .0 normal Not Available [facility] [address] [place] [address], [address], 09/20/2017 22:49:27 09/20/19 18 09/20/2017 CBC w/ auto diff % eosinophils 3.0 % 0.0-7. 0 normal Not Available [facility] [address] [place] [address], [address], 09/20/2017 22:49:27 09/20/19 18 09/20/2017 CBC w/ auto diff % basophils 0.0 % 0.0-3. 0 normal Not Available [facility] [address] [place] [address], [address], 09/20/2017 22:49:27 09/20/19 18 09/20/2017 CBC w/ auto diff nucleated red cells 0.5 % 0.0-0. 9 normal Not Available [facility] [address] [place] [address], [address], 09/20/2017 22:49:27 09/20/19 18 09/20/2017 CBC w/ auto diff nucleated RBCs, absolute 0.06 K/uL not estab. normal Not Available [facility] [address] [place] [address], [address], 09/20/2017 22:49:27 09/20/19 18 09/20/2017 diffcynthia correa, blood manual differential PERFOR MED normal Not Available [facility] [address] [place] [address], [address], 09/20/2017 22:49:28 09/20/19 18 09/20/2017 diffcynthia correa l, blood % band neutrophils 4.0 % 0.0-7. 0 normal Not Available [facility] [address] [place] [address], [address], 09/20/2017 22:49:28 09/20/19 18 09/20/2017 diffcynthia correa l, blood % atypical lymphocytes 0 % 0-1 normal Not Available [facility] [address] [place] [address], [address], 09/20/2017 22:49:28 09/20/19 18 09/20/2017 diffcynthia correa l, blood % metamyelocyt es 0 % 0-1 normal Not Available [facility] [address] [place] [address], [address], 09/20/2017 22:49:28 09/20/19 18 09/20/2017 diffcynthia correa l, blood % myelocytes 1 % 0-1 normal Not Available [facility] [address] [place] [address], [address], 09/20/2017 22:49:28 09/20/19 18 09/20/2017 diffe karen brooksa l, blood % promyelocyte s 0 % normal Not Available [facility] [address] [place] [address], [address], 09/20/2017 22:49:28 09/20/19 18 09/20/2017 diffe karen brooksa l, blood % blast 0 % normal Not Available [facility] [address] [place] [address], [address], 09/20/2017 22:49:28 09/20/19 18 09/20/2017 diffe karen brooksa l, blood nucleated red cells 0 /100_ WBC normal Not Available [facility] [address] [place] [address], [address], 09/20/2017 22:49:28 09/20/19 18 09/20/2017 diffkaren correaa l, blood smudge cells 0 normal Not Available [facility] [address] [place] [address], [address], 09/20/2017 22:49:28 09/20/19 18 09/20/2017 diffe karen brooksa l, blood platelet morphology NORMAL normal Not Available [facility] [address] [place] [address], [address], 09/20/2017 22:49:28 09/20/19 18 09/20/2017 diffe karen brooksa l, blood polychromasi a SLIGHT abnormal Not Available [facility] [address] [place] [address], [address], 09/20/2017 22:49:28 09/20/19 18 09/23/2017 testo stero ne, free, serum testosterone , free 152.6 pg/mL 46.0-2 24.0 normal TEST PERFO RMED AT: [facility] [address] [place] [address] Kennedi AUGUSTE,PHD Not Available [facility] [address] [place] [address], [address], 09/23/2017 11:25:40 09/20/19 18 09/24/2017 estro gen, total , serum estrogen, serum 383.8 pg/mL 60-190 high The total estro gen assay is not recom kady d for use in pre-p ubert al child pancho. TEST PERFO RMED AT: [facility]/NARESH [facility] [address] [place] [address] LEONIDAS LEE MD PHD Not Available [facility] [address] [place] [address], [address], 09/25/2017 00:00:32 09/20/19 18 09/20/2017 PSA, serum or plasm a PSA 0.95 NG/mL 0.0 - 4.0 Not Available [facility] [address], [place], [address], 09/20/2017 09:10:45 Result Notes None recorded. Problems Name Problem SNOMED Code Status Onset Date Resolution Date Notes Provider Name and Address Organization Details Recorded Time Testicula r hypofunct ion 528588733 Active 2015 From Automated Load;Provi chelsea: Jen Ni;Yari tus: Active Not Available [facility] 7 02:34:43 Kidney stone 42271625 Active 2015 Provider: James Ni tus: Active Not Available [facility] 6 12:11:18 Problem Notes None recorded. Procedures Surgical History Date Name Laterality Status Provider Name and Address Organization Details Recorded Time Appendectomy completed [facility] 08/15/2016 09:30:14 Cholecystectomy completed [facility] 08/15/2016 09:30:20 Kidney Stones completed [facility] 08/15/2016 09:32:11 Imaging Results None recorded. Procedure Notes None recorded. Medical Equipment None Reported. Allergies No known drug allergies Medications Name Sig Start Date Stop Date Status Note LastModified by Organization Details LastModified Time Prescript ion - Prior Authoriza tion Request active Not Available Not Available Not Available bupropion HCl SR 150 mg tablet,12 hr sustained -release 05/09 completed Not Available Not Available Not Available meloxicam 7.5 mg tablet active Not Available Not Available Not Available Depo-Test osterone 200 mg/mL intramusc ular oil Inject 2 mL every 3 weeks by intramus cular route as directed for 21 days. 2017 active Not Available Not Available Not Avai lable tamsulosi n 0.4 mg capsule active Medicati on Descript ion: tamsulos in; Route:or al; refills: 0 Not Available Not Available Not Available hydrocodo ne 7.5 mg-acetam inophen 325 mg tablet active Not Available Not Available Not Available lisinopri l 10 mg tablet active Not Available Not Available Not Available metoprolo l succinate ER 25 mg tablet,ex tended release 24 hr active Not Available Not Available Not Available naproxen 500 mg tablet active Not Available Not Available Not Available amoxicill in 875 mg-potass ium clavulana te 125 mg tablet active Not Available Not Available Not Available bupropion HCl XL 300 mg 24 hr tablet, extended release active Not Available Not Available Not Available phenazopy ridine active Medicati on Descript ion: phenazop yridine; refills: 0 Not Available Not Available Not Available Ketorolac Trometham ine (Ophth) active Medicati on Descript ion: ketorola c; refills: 0 Not Available Not Available Not Available ciproflox acin active Medicati on Descript ion: ciproflo xacin; Route:or al; refills: 0 Not Available Not Available Not Available Vitals Date Recorded Body height Body mass index (BMI) Body weight Heart rate Systolic blood pressure Diastolic blood pressure Provider Name and Address Organization Details Last Updated DateTime 8 175.26 cm 37.7 kg/m2 740245. 05 g 96 /min 181 mm[Hg] 114 mm[Hg] Shilpi Sahu [facility] 8 09:51:10 Date Recorded Body height Provider Name an d Address Organization Details Last Updated DateTime 08/22/2017 175.26 cm Gus Driscoll [facility] 08/22/2017 10:11:14 Social History Question Answer Notes LastModified by Organizat ion Details LastModified Time Tobacco Smoking Status [facility] 09:29:52 Marital Status temitope Informatio n not available 08/15/2016 What Was The Date Of Your Most Recent Tobacco Screening? 10/02/2017 Information n ot available 10/14/2019 Sex: Unknown Functional Status Question Answer Note LastModified by Organization D etails LastModified Time What is your level of alcohol consumption? None Information not available 08/15/2016 Mental Status None recorded. Family History Relationship Description Onset Age of this Age Resolved Age Notes LastModified by Organization Details LastModified Time Unspecified Relation Family history of malignant neoplasm [email or web address] Not available 2015 09:29:13 Unspecified Relation Diabetes mellitus [email or web address] Not available 2015 09:29:19 Unspecified Relation Kidney disease [email or web address] Not available 2015 09:29:26 Father Family history of malignant neoplasm PROSTA TE Not available 08/15/2016 09:29:46 Medical History Condition Response Gout N Kidney Stones N Heart Arrhythmia N Emphysema N Erectile Dysfunction N Glaucoma N Depression N Pneumonia N Anesthesia Complications N Cancer Prostate N Anxiety Disorder N Arthritis N Acid Reflux (GERD) N Cancer N Stroke N Radiation Therapy N High Cholesterol N High PSA N Liver Disease N Kidney Disease Y Allergies/Hayfever N False Teeth N Chronic Obstructive Pulmonary Disease N Heart Conditions N Chemotherapy N Anemia N Urinary Problems N Heart Attack ([place]) N Ulcers N Mental Illness N Diabetes N Low Testosterone N Seizures/Epilepsy N Tuberculosis N AIDS/HIV N Congestive Heart Failure (CHF) N BPH N Urinary Tract Infection N Asthma N Sleep Apnea N Thyroid Disorder N Hepatitis N Heart Disease N Bronchitis N Hypertension N Past Encounters Encounter ID Performer Location Encounter Start Date Encounter Closed Date Diagnosis/Indication Diagnosis SNOMED-CT Code Diagnosis ICD10 Code Diagnosis Note [id number] JEN NI MD [facility] [address] [place] [address] 0 08/15/2016 08:56:59 08/15/2016 17:04:46 Hypogonadism 54490380 E29.1 Testicular hypofunction 034482914 E29.1 [id number] JEN NI MD [facility] [address] [place] [address] 0 09/05/2016 09:37:42 09/05/2016 16:39:44 Testicular hypofunction 087874285 E29.1 [id number] JEN NI MD [facility] [address] [place] [address] 0 09/26/2016 08:48:53 09/26/2016 16:54:01 Testicular hypofunction 840906315 E29.1 [id number] JEN NI MD [facility] [address] [place] [address] 0 10/17/2016 08:57:44 10/18/2016 09:35:56 Testicular hypofunction 095487865 E29.1 [id number] JEN NI MD [facility] [address] [place] [address] 0 11/07/2016 09:00:45 11/07/2016 09:51:22 Testicular hypofunction 420505339 E29.1 [id number] JEN NI MD [facility] [address] [place] [address] 0 11/28/2016 09:16:57 11/28/2016 10:53:18 Testicular hypofunction 018315611 E29.1 [id number] JEN NI MD [facility] [address] [place] [address] 0 12/12/2016 08:41:30 12/12/2016 12:56:05 Testicular hypofunction 320300558 E29.1 [id number] JEN NI MD [facility] [address] [place] [address] 12/26/2016 09:01:21 12/26/2016 14:01:37 Testicular hypofunction 247939624 E29.1 [id number] JEN NI MD [facility] [address] [place] [address] 01/16/2017 09:17:20 01/24/2017 17:11:23 Testicular hypofunction 610797591 E29.1 [id number] JEN NI MD [facility] [address] [place] [address] 02/06/2017 08:53:49 02/06/2017 11:19:54 Testicular hypofunction 201571351 E29.1 [id number] JEN NI MD [facility] [address] [place] [address] 02/16/2017 08:53:55 02/16/2017 09:44:50 Testicular hypofunction 209569022 E29.1 [id number] FRANK EGAN JR, MD [facility] [address] [place] [id number] 02/26/2017 08:44:53 02/26/2017 10:52:41 Testicular hypofunction 695289960 E29.1 [id number] FRANK EGAN JR, MD [facility] [address] [place] [address] 03/19/2017 08:50:52 03/19/2017 12:21:37 Male hypogonadism 58051009 E29.1 [id number] FRANK EGAN JR, MD [facility] [address] [place] [id number] 04/09/2017 09:09:20 04/11/2017 08:52:15 Testicular hypofunction 669008230 E29.1 [id number] JEN NI MD [facility] [address] [place] [address] 0 04/27/2017 09:04:29 04/27/2017 09:37:44 Testicular hypofunction 999621300 E29.1 [id number] CHRIS ARORA MD [facility] [address] [place] [address] 0 05/09/2017 09:52:03 05/22/2017 16:47:00 Testicular hypofunction 306969098 E29.1 [id number] FRANK EGAN JR, MD [facility] [address] [place] [address] 0 05/30/2017 10:00:07 06/01/2017 15:54:53 Testicular hypofunction [id number] E29.1 [id number] CHRIS ARORA MD [facility] [address] [place] [address] 0 06/20/2017 09:45:07 06/20/2017 14:41:37 Testicular hypofunction [id number] E29.1 [id number] CHRIS ARORA MD [facility] [address] [place] [address] 0 07/11/2017 10:02:12 07/11/2017 16:07:56 Testicular hypofunction [id number] E29.1 [id number] CHRIS ARORA MD [facility] [address] [place] [address] 0 08/01/2017 10:22:23 08/01/2017 11:25:21 Testicular hypofunction [id number] E29.1 [id number] CHRIS ARORA MD [facility] [address] [place] [address] 0 08/22/2017 09:38:48 08/22/2017 10:36:58 Testicular hypofunction [id number] E29.1 [id number] [facility] [address] [place] [address] 09/11/2017 09:22:44 09/11/2017 13:39:37 Testicular hypofunction [id number] E29.1 [id number] FRANK EGAN JR, MD [facility] [address] [place] [address] 09/20/2017 09:07:28 09/20/2017 09:37:01 Testicular hypofunction [id number] E29.1 [id number] [facility] [address] [place] [phone] 10/02/2017 09:09:12 10/02/2017 10:07:22 Testicular hypofunction [id number] E29.1 [id number] JEN NI MD [facility] [address] [place] [id number] 10/23/2017 09:10:40 10/25/2017 12:15:11 Testicular hypofunction [id number] E29.1 Health Concerns Section Related Observation LastModified by Organization Detai ls LastModified Time None Recorded Concern Status LastModified by Organization Details LastModified Time None Recorded Advance Directives Directive None Recorded Payers Insurance Date Sequence Insurance Name Policy Number Policy Villagomez Covered Member ID Villagomez Member ID Guarantor Name 09/11/2017 1 [facility] [id number] Familia Beyer [id number] Familia Beyer 11/10/2017 1 [id number] [id number] Familia Beyer [id number] Familia Beyer Notes Date Note Type Note Provider Name and Address Organization Details Recorded Time 09/11/2017 text/html 42-year-old male in the office for follow-up evaluation of testicular hypofunction managed with Depo-Testosterone injections 400 mg IM every 3 weeks. His last injection was 08/22/17. He reports decreased energy level with decreased muscle mass. He has difficulties obtaining and maintaining an erection. He denies troubles with urination. JEN NI MD [address] [place] [address], [phone], [facility] 09/11/2017 10:55:54
--- OUTSIDE RECORDS SUMMARY | 2025-02-03 14:10 | XMS_ITS | Data Portability ---
Author Organization [facility] & [place] [facility] ADMIN Address [address] [place] [id number] Assessment No assessment recorded. Plan of Treatment Reminders Order Date Submit Date Provider Last Modified By Organization Details Last Modified Time Details Appointments None recorded. Lab HbA1c (hemoglobin A1c), blood 2023 024 [facility], [address], [address], [place], [address], 4 11:24:05 CBC w/ auto diff 2022 023 DEB [facility], [address], [address], [place], [address], 3 13:09:43 lipid panel, serum 2022 023 DEB [facility], [address], [address], [place], [address], 3 13:09:45 CMP, serum or plasma 2022 023 DEB [facility], [address], [address], [place], [address], 3 13:09:44 TSH + free T4, serum 2022 023 DEB [facility], [address], [address], [place], [address], 3 13:09:42 PSA, total, serum or plasma 2022 023 DEB [facility], [address], [address], [place], [address], 3 13:09:47 HbA1c (hemoglobin A1c), blood 2022 023 [place] [facility], [address], [address], [place], [address], 3 13:09:46 Referral None recorded. Procedures None recorded. Surgeries None recorded. Imaging nuclear stress test - Exercise 2021 022 [facility] (Centralized Scheduling), [address], [place], [address], 2 11:41:18 electrocard iogram 2021 [email or web address] [place] [address] [facility], [address], [place], [address], 2 14:55:11 Medication Orders lisinopril 20 mg tablet 2023 024 [facility] [address], [address] [place] [address], [address], 4 13:49:01 nebivolol 5 mg tablet 2023 024 [facility] [address], [address] [place] [address], [address], 4 13:48:59 metformin ER 1,000 mg 24 hr tablet,exte nded release (gastric reten.) 2022 024 [facility] [address], [address] [place] [address], [address], 4 13:20:57 amlodipine 5 mg-benazepr il 40 mg capsule 2022 023 [facility] [address], [address] [place] [address], [address], 3 16:06:09 metformin ER 500 mg tablet,exte nded release 24 hr 2022 023 [facility] [address], [address] [place] [address], [address], 3 09:24:20 [facility] 20 mg tablet 20[facility] [address] [place] [address], [address], 3 10:23:52 lisinopril 10 mg tablet 2021 022 [facility], [address] [place], [address], 3 09:24:49 Patient TargetsNo targets recorded. Patient Instructions Encounter Date Encounter Id Patient Instructions Last Modified By Organization Details Last Modified Time 07/16/2023 [id number] chronic stable problems requiring labs to be interpreted and meds prescribed Not available 07/16/2023 13:06:29 08/15/2023 [id number] Managing 2 chronic problems requiring lab review, as well as medication adjustments Not available 08/16/2023 09:37:03 09/12/2023 [id number] Appt to see Eye Doc next month Not available 09/12/2023 13:51:41 Reason for Referral None Reported. Results Created Date Observation Date Name Description Value Unit Range Abnormal Flag Note LastModifiedBy Organization Detail LastModifiedTime 07/16/2007/17/2023 TSH+F REE T4 TSH 2.270 uIU/m L 0.450- 4.500 Not Available [facility] ([facility]) [address] [facility], [place], [address], 07/17/2023 13:09:42 07/16/20 23 07/17/2023 TSH+F REE T4 T4,free(dire ct) 1.22 NG/dL 0.82-1 .77 Not Available [facility] ([facility]) [address] [facility], [place], [address], 07/17/2023 13:09:42 07/16/20 23 07/17/2023 CBC WITH DIFFE RENTI AL/PL ATELE T WBC 6.8 x10e3 /uL 3.4-10 .8 Not Available [facility] ([facility]) [address] [facility], [place], [address], 07/17/2023 13:09:43 07/16/20 23 07/17/2023 CBC WITH DIFFE RENTI AL/PL ATELE T RBC 4.88 x10e6 /uL 4.14-5 .80 Not Available [facility] ([facility]) [address] [facility], [place], [address], 07/17/2023 13:09:43 07/16/20 23 07/17/2023 CBC WITH DIFFE RENTI AL/PL ATELE T hemoglobin 14.6 g/dL 13.0-1 7.7 Not Available [facility] ([facility]) [address] [facility], [place], [address], 07/17/2023 13:09:43 07/16/20 23 07/17/2023 CBC WITH DIFFE RENTI AL/PL ATELE T hematocrit 42.6 % 37.5-5 1.0 Not Available [facility] ([facility]) [address] [facility], [place], [address], 07/17/2023 13:09:43 07/16/20 23 07/17/2023 CBC WITH DIFFE RENTI AL/PL ATELE T MCV 87 fL 79-97 Not Available [facility] ([facility]) [address] [facility], [place], [address], 07/17/2023 13:09:43 07/16/20 23 07/17/2023 CBC WITH DIFFE RENTI AL/PL ATELE T MCH 29.9 pg 26.6-3 3.0 Not Available [facility] ([facility]) [address] [facility], [place], [address], 07/17/2023 13:09:43 07/16/20 23 07/17/2023 CBC WITH DIFFE RENTI AL/PL ATELE T MCHC 34.3 g/dL 31.5-3 5.7 Not Available [facility] ([facility]) [address] [facility], [place], [address], 07/17/2023 13:09:43 07/16/20 23 07/17/2023 CBC WITH DIFFE RENTI AL/PL ATELE T RDW 13.8 % 11.6-1 5.4 Not Available [facility] ([facility]) [address] [facility], [place], [address], 07/17/2023 13:09:43 07/16/20 23 07/17/2023 CBC WITH DIFFE RENTI AL/PL ATELE T platelets 224 x10e3 /uL 150-45 0 Not Available [facility] ([facility]) [address] [facility], [place], [address], 07/17/2023 13:09:43 07/16/20 23 07/17/2023 CBC WITH DIFFE RENTI AL/PL ATELE T neutrophils 56 % not estab. Not Available [facility] ([facility]) [address] [place], [address], 07/17/2023 13:09:43 07/16/20 23 07/17/2023 CBC WITH DIFFE RENTI AL/PL ATELE T lymphs 29 % not estab. Not Available [facility] ([facility]) [address] [place], [address], 07/17/2023 13:09:43 07/16/20 23 07/17/2023 CBC WITH DIFFE RENTI AL/PL ATELE T monocytes 9 % not estab. Not Available [facility] ([facility]) [address] [place], [address], 07/17/2023 13:09:43 07/16/20 23 07/17/2023 CBC WITH DIFFE RENTI AL/PL ATELE T eos 4 % not estab. Not Available [facility] ([facility]) [address] [place], [address], 07/17/2023 13:09:43 07/16/20 23 07/17/2023 CBC WITH DIFFE RENTI AL/PL ATELE T basos 1 % not estab. Not Available [facility] ([facility]) [address] [place], [address], 07/17/2023 13:09:43 07/16/20 23 07/17/2023 CBC WITH DIFFE RENTI AL/PL ATELE T immature cells ICE CREAM DIPPER Not Available [facility]) [address] [facility], [place], [address], 07/17/2023 13:09:43 07/16/20 23 07/17/2023 CBC WITH DIFFE RENTI AL/PL ATELE T neutrophils (absolute) 3.8 x10e3 /uL 1.4-7. 0 Not Available [facility] ([facility]) [address] [facility], [place], [address], 07/17/2023 13:09:43 07/16/20 23 07/17/2023 CBC WITH DIFFE RENTI AL/PL ATELE T lymphs (absolute) 2.0 x10e3 /uL 0.7-3. 1 Not Available [facility] ([facility]) [address] [place], [address], 07/17/2023 13:09:43 07/16/20 23 07/17/2023 CBC WITH DIFFE RENTI AL/PL ATELE T monocytes(ab solute) 0.6 x10e3 /uL 0.1-0. 9 Not Available [facility] ([facility]) [address] [place], [address], 07/17/2023 13:09:43 07/16/20 23 07/17/2023 CBC WITH DIFFE RENTI AL/PL ATELE T eos (absolute) 0.3 x10e3 /uL 0.0-0. 4 Not Available [facility] ([facility]) [address] [facility], [place], [address], 07/17/2023 13:09:43 07/16/20 23 07/17/2023 CBC WITH DIFFE RENTI AL/PL ATELE T baso (absolute) 0.0 x10e3 /uL 0.0-0. 2 Not Available [facility] ([facility]) [address] [facility], [place], [address], 07/17/2023 13:09:43 07/16/20 23 07/17/2023 CBC WITH DIFFE RENTI AL/PL ATELE T immature granulocytes 1 % not estab. Not Available [facility] ([facility]) [address] [facility], [place], [address], 07/17/2023 13:09:43 07/16/20 23 07/17/2023 CBC WITH DIFFE RENTI AL/PL ATELE T immature grans (abs) 0.0 x10e3 /uL 0.0-0. 1 Not Available [facility] ([facility]) [address] [place], [address], 07/17/2023 13:09:43 07/16/20 23 07/17/2023 CBC WITH DIFFE RENTI AL/PL ATELE T NRBC ICE CREAM DIPPER Not Available [facility] ([facility]) [address] [place], [address], 07/17/2023 13:09:43 07/16/20 23 07/17/2023 CBC WITH DIFFE RENTI AL/PL ATELE T hematology comments: ICE CREAM DIPPER Not Available [facility]) [address] [place], [address], 07/17/2023 13:09:43 07/16/20 23 07/17/2023 COMP. METAB OLIC PANEL (14) glucose 242 mg/dL 70-99 above high normal Not Available [facility] ([facility]) [address] [place], [address], 07/17/2023 13:09:44 07/16/20 23 07/17/2023 COMP. METAB OLIC PANEL (14) BUN 17 mg/dL 6-24 Not Available [facility] ([facility]) [address] [place], [address], 07/17/2023 13:09:44 07/16/20 23 07/17/2023 COMP. METAB OLIC PANEL (14) creatinine 0.99 mg/dL 0.76-1 .27 Not Available [facility] ([facility]) [address] [place], [address], 07/17/2023 13:09:44 07/16/20 23 07/17/2023 COMP. METAB OLIC PANEL (14) eGFR 95 mL/mi n/1.7 3 >59 Not Available [facility] ([facility]) [address] [place], [address], 07/17/2023 13:09:44 07/16/20 23 07/17/2023 COMP. METAB OLIC PANEL (14) BUN/creatini ne ratio 17 9-20 Not Available [facility]) [address] [place], [address], 07/17/2023 13:09:44 07/16/20 23 07/17/2023 COMP. METAB OLIC PANEL (14) sodium 136 mmol/ L 134-14 4 Not Available [facility] ([facility]) [address] [place], [address], 07/17/2023 13:09:44 07/16/20 23 07/17/2023 COMP. METAB OLIC PANEL (14) potassium 4.3 mmol/ L 3.5-5. 2 Not Available [facility] ([facility]) [address] [facility], [place], [address], 07/17/2023 13:09:44 07/16/20 23 07/17/2023 COMP. METAB OLIC PANEL (14) chloride 102 mmol/ L 96-106 Not Available [facility] ([facility]) [address] [facility], [place], [address], 07/17/2023 13:09:44 07/16/20 23 07/17/2023 COMP. METAB OLIC PANEL (14) carbon dioxide, total 19 mmol/ L 20-29 below low normal Not Available [facility] ([facility]) [address] [facility], [place], [address], 07/17/2023 13:09:44 07/16/20 23 07/17/2023 COMP. METAB OLIC PANEL (14) calcium 8.7 mg/dL 8.7-10 .2 Not Available [facility] ([facility]) [address] [facility], [place], [address], 07/17/2023 13:09:44 07/16/20 23 07/17/2023 COMP. METAB OLIC PANEL (14) protein, total 6.2 g/dL 6.0-8. 5 Not Available [facility] ([facility]) [address] [facility], [place], [address], 07/17/2023 13:09:44 07/16/20 23 07/17/2023 COMP. METAB OLIC PANEL (14) albumin 4.1 g/dL 4.1-5. 1 Not Available [facility] ([facility]) [address] [place], [address], 07/17/2023 13:09:44 07/16/20 23 07/17/2023 COMP. METAB OLIC PANEL (14) globulin, total 2.1 g/dL 1.5-4. 5 Not Available [facility] ([facility]) [address] [facility] [place], [address], 07/17/2023 13:09:44 07/16/20 23 07/17/2023 COMP. METAB OLIC PANEL (14) A/G ratio 2.0 1.2-2. 2 Not Available [facility] ([facility]) [address] [facility] [place], [address], 07/17/2023 13:09:44 07/16/20 23 07/17/2023 COMP. METAB OLIC PANEL (14) bilirubin, total 0.9 mg/dL 0.0-1. 2 Not Available [facility] ([facility]) [address] [facility] [place], [address], 07/17/2023 13:09:44 07/16/20 23 07/17/2023 COMP. METAB OLIC PANEL (14) alkaline phosphatase 88 IU/L 44-121 Not Available [facility] [address] [facility] [place], [address], 07/17/2023 13:09:44 07/16/20 23 07/17/2023 COMP. METAB OLIC PANEL (14) AST (SGOT) 27 IU/L 0-40 Not Available [facility] ([facility]) [address] [facility] [place], [address], 07/17/2023 13:09:44 07/16/20 23 07/17/2023 COMP. METAB OLIC PANEL (14) ALT (SGPT) 55 IU/L 0-44 above high normal Not Available [facility] ([facility]) [address] [facility] [place], [address], 07/17/2023 13:09:44 07/16/20 23 07/17/2023 LIPID PANEL cholesterol, total 159 mg/dL 100-19 9 Not Available [facility] ([facility]) [address] [place], [address], 07/17/2023 13:09:45 07/16/20 23 07/17/2023 LIPID PANEL triglyceride s 224 mg/dL 0-149 above high normal Not Available [facility] ([facility]) [address] [place], [address], 07/17/2023 13:09:45 07/16/20 23 07/17/2023 LIPID PANEL HDL cholesterol 26 mg/dL >39 below low normal Not Available [facility] ([facility]) [address] [place], [address], 07/17/2023 13:09:45 07/16/20 23 07/17/2023 LIPID PANEL VLDL cholesterol kali 38 mg/dL 5-40 Not Available [facility] [address] [place], [address], 07/17/2023 13:09:45 07/16/20 23 07/17/2023 LIPID PANEL LDL chol calc ([facility]) 95 mg/dL 0-99 Not Available [facility] [address] [place], [address], 07/17/2023 13:09:45 07/16/20 23 07/17/2023 LIPID PANEL comment: ICE CREAM DIPPER Not Available [facility] ([facility]) [address] [place], [address], 07/17/2023 13:09:45 07/16/20 23 07/17/2023 HEMOG LOBIN A1C hemoglobin A1C 8.6 % 4.8-5. 6 above high normal Predi abete s: 5.7 - 6.4 Diabe live: >6.4 Glyce devyn contr ol for adult s with diabe live: <7.0 Not Available [facility] ([facility]) [address] [place], [address], 07/17/2023 13:09:46 07/16/20 23 07/17/2023 PROST ATE-S PECIF IC AG prostate specific Ag 0.7 NG/mL 0.0-4. 0 Grace ECLIA metho dolog y. Accor ding to the Ameri can [employer]o g[employer] iatio n, Serum PSA shoul d decre ase and remai n at undet ectab le level s after radic al prost atect lily. The AUA defin es bioch emica l recur rence as an initi al PSA value 0.2 ng/mL or great er follo wed by a subse quent confi rmato ry PSA value 0.2 ng/mL or great er. Value s obtai yael with diffe rent assay metho ds or kits canno t be used inter teague eably . Resul ts canno t be inter prete d as absol [place] evide nce of the prese nce or absen ce of luisa couch se. Not Available [facility] ([facility]) [address] [facility], [place], [address], 07/17/2023 13:09:47 09/12/19 24 09/13/2023 HEMOG LOBIN A1C hemoglobin A1C 7.5 % 4.8-5. 6 above high normal Predi abete s: 5.7 - 6.4 Diabe live: >6.4 Glyce devyn contr ol for adult s with diabe live: <7.0 Not Available [facility] ([facility]) [address] [facility], [place], [address], 09/13/2023 06:21:41 07/17/20 22 07/18/2022 elect rocar diogr am No observ ation record ed. [facility] [address], [place], [address], 07/18/2022 08:25:33 07/18/20 22 07/17/2022 elect rocar diogr am, routi ne ECG, 12 leads min No observ ation record ed. BARCODE Not Available 2021 14:21:12 Result Notes None recorded. Problems Name Problem SNOMED Code Status Onset Date Resolution Date Notes Provider Name and Address Organization Details Recorded Time Essential hypertension 50628768 Active 2021 Anjum James MD [address], [place], [address] , [facility] [place] 2 14:43:49 Chest pain 34635230 Active 2021 Anjum James MD [address], [place], [address] , [facility] & [place] 2 14:46:40 Body mass index 30+ - obesity 414562533 Active 2021 Susana Laddmillie Sanchez [facility], [facility] [place] 3 10:40:40 Problem Notes None recorded. Procedures Surgical History Date Name Laterality Status Provider Name and Address Organization Details Recorded Time 08/27/19 19 Colonoscopy completed Johanashayy Davis [facility] [place] 07/17/2022 14:22:10 08/27/18 95 Appendectomy completed Johana Davis [facility] [place] 07/17/2022 14:22:09 Gallbladder Surgery completed Radhadion Haile [facility] [place] 07/16/2023 09:31:46 percutaneous extraction of kidney stone with fragmentation procedure [facility] [place] 07/16/2023 09:32:13 Imaging Results None recorded. Procedure Notes None recorded. Medical Equipment None Reported. Allergies No known drug allergies Medications Name Sig Start Date Stop Date Status Note LastModified by Organization Details LastModified Time cyclobenzapr ine 10 mg tablet TAKE 1 TABLET BY MOUTH EVERY 12 HOURS 07/16 completed Not Available Not Available Not Available metformin 500 mg tablet TAKE 1 TABLET BY MOUTH THREE TIMES DAILY WITH MEALS 08/16 completed Not Available Not Available Not Available lisinopril 20 mg tablet TAKE 1 TABLET BY MOUTH ONCE DAILY active Not Available Not Available No t Available prednisone 20 mg tablet TAKE 3 TABLETS BY MOUTH ONCE DAILY FOR 5 DAYS 07/16 completed Not Available Not Available Not Available metronidazol e 500 mg tablet TAKE 1 TABLET BY MOUTH EVERY 8 HOURS FOR 10 DAYS 07/14 completed Not Available Not Available Not Available ciprofloxaci n 500 mg tablet TAKE 1 TABLET BY MOUTH EVERY 12 HOURS FOR 10 DAYS 07/14 completed Not Available Not Available Not Available lisinopril 10 mg tablet TAKE 1 TABLET BY MOUTH ONCE DAILY 08/16 completed Not Available Not Available Not Available lisinopril 5 mg tablet TAKE 1 TABLET BY MOUTH ONCE DAILY 07/14 completed Not Available Not Available Not Available metformin ER 500 mg tablet,exten ded release 24 hr active Not Available Not Available Not Available metformin ER 1,000 mg tablet,exten ded release 24hr (osmotic) Take by oral route for 90 days. 08/16 completed Not Available Not Available Not Available amlodipine 5 mg-benazepri l 40 mg capsule TAKE 1 CAPSULE BY MOUTH ONCE DAILY active Not Available Not Available No t Available nebivolol 5 mg tablet TAKE 1 TABLET BY MOUTH ONCE DAILY active Not Available Not Available No t Available metformin ER 1,000 mg 24 hr tablet,exten ded release (gastric reten.) Take 1 tablet every day by oral route. 09/12 completed Not Available Not Available Not Available Vitals Date Recorded Body height Body mass index (BMI) Body weight Body temperature Oxygen saturation Oxygen saturation in Arterial blood by Pulse oximetry Heart rate Systolic blood pressure Diastolic blood pressure Provider Name and Address Organization Details Last Updated DateTime 4 175.26 cm 41.7 kg/m2 463260. 15 g 98.2 [degF] 96 % 96 % 86 /min 148 mm[Hg] 96 mm[Hg] Radha SALMERON [facility] [place] 4 13:17:39 Date Recorded Body height Body mass index (BMI) Body weight Body temperature Oxygen saturation Oxygen saturation in Arterial blood by Pulse oximetry Heart rate Systolic blood pressure Diastolic blood pressure Provider Name and Address Organization Details Last Updated DateTime 3 175.26 cm 41.9 kg/m2 415342. 44 g 97.7 [degF] 98 % 98 % 92 /min 140 mm[Hg] 90 mm[Hg] Radha LAY - RASHIDANT [facility] [place] 3 09:35:31 Date Recorded Body height Body mass index (BMI) Body weight Oxygen saturation Oxygen saturation in Arterial blood by Pulse oximetry Heart rate Systolic blood pressure Diastolic blood pressure Provider Name and Address Organization Details Last Updated DateTime 2 175.26 cm 43.6 kg/m2 518235. 75 g 97 % 97 % 104 /min 157 mm[Hg] 102 mm[Hg] Johana Davis [facility] [place] 2 14:43:59 Date Recorded Body height Body mass index (BMI) Body weight Body temperature Oxygen saturation Oxygen saturation in Arterial blood by Pulse oximetry Heart rate Systolic blood pressure Diastolic blood pressure Provider Name and Address Organization Details Last Updated DateTime 3 175.26 cm 42.1 kg/m2 330798. 23 g 98.1 [degF] 98 % 98 % 103 /min 182 mm[Hg] 110 mm[Hg] Radha Haile [facility] [place] 3 15:25:47 Social History Question Answer Notes LastModified by Pandor[employer] Details LastModified Time Tobacco Smoking Status Never Smoker Johana Davis [facility] & [place] 07/17/2022 14:22:09 Do You Have An Advance Directive? No Information not available 07/17/2022 Are You Blind Or Do You Have Difficulty Seeing? No Information not available 07/17/2022 What Is Your Level Of Caffeine Consumption? Moderate Information not available 08/15/2023 What Was The Date Of Your Most Recent Tobacco Screening? 07/16/2022 Information not available 07/17/2022 Are You Passively Exposed To Smoke? No Information not available 07/17/2022 How Much Tobacco Do You Smoke? No Information not available 07/17/2022 How Many Years Have You Smoked Tobacco? 0 Information not available 07/17/2022 Sex: Unknown Functional Status Question Answer Note LastModified by Organizat ion Details LastModified Time Do you use any illicit or recreational drugs? No Information not available 07/17/2022 What is your level of alcohol consumption? None Information not available 07/17/2022 Do you or have you ever used smokeless tobacco? Never used smokeless tobacco Information not available 07/17/2022 What is your exercise level? Moderate Information not available 07/17/2022 Mental Status Question Answer Note LastModified by Organization D etails LastModified Time Do you feel stressed (tense, restless, nervous, or anxious, or unable to sleep at night)? [id number] Information not available 07/17/2022 Family History Relationship Description Onset Age of this Age Resolved Age Notes LastModified by Organization Details LastModified Time Father Disorder of endocrine system pt. added direct ly (07/16) [email or web address] Not available 07/16/2022 18:47:45 Father Heart disease pt. added direct ly (07/16) [email or web address] Not available 07/16/2022 18:47:57 Father Hypertensive disorder pt. added direct ly (07/16) [email or web address] Not available 07/16/2022 18:48:06 Medical History Condition Response Diabetes Y Obesity Y Gout Y Vision or Eye Problems Y Back Problems Y Hypertension Y Kidney or Bladder Problems Y Immunizations Vaccine Type Date Status Note Provider Nam e and Address Organization Details Recorded Time COVID-19, mRNA, LNP-S, PF, 100 mcg/0.5mL dose or 50 mcg/0.25mL dose 08/30/2021 completed ROSANNE Ann - LPNT [facility] [place] 08/15/2023 15:26:42 COVID-19, mRNA, LNP-S, PF, 100 mcg/0.5mL dose or 50 mcg/0.25mL dose 08/02/2021 completed ROSANNE Ann LPNT [facility] 08/15/2023 15:26:42 Past Encounters Encounter ID Performer Location Encounter Start Date Encounter Closed Date Diagnosis/Indication Diagnosis SNOMED-CT Code Diagnosis ICD10 Code Diagnosis Note [id number] Anjum James MD [facility] [address] [facility] [address] [place] [address] 07/17/2022 14:04:28 07/17/2022 14:55:11 Essential hypertension 99048574 I10 Continue current medication . Keep log Low-salt diet < 2 gm Na/day, Regular exercise Weight loss Chest pain 16731473 R07. 9 Given clinical presentati on and risk profile , will get stress test for ischemic evaluation and risk stratifica tion Body mass index 30+ - obesity 781500656 Z68.41 Low-carboh ydrate and low-fat diet Increase exercise to 30 minutes a day. Increase fruits and fresh vegetable intake and decrease processed foods and sugars [id number] Anjel Montgomery MD [facility] [address] [place] [address] 07/16/2023 09:16:06 07/16/2023 10:28:23 Type 2 diabetes mellitus 32861603 E11.9 Will change metformin IR to metformin ER. Needs Essential hypertension 54148699 I10 Increase lisinopril from 10 to 20 mg and F/U in 1 month Family his tory of Cardiovascular disease [id number] Z82.49 Because of his family hx, combined with his diabetes and h/o chest pain at ER, he is interested in the further cardiology evaluation suggested by Dr. James. Will discuss at F/U visit [id number] Anjel Montgomery MD [facility] [address] [facility],[address] [place] [address] 08/15/2023 14:31:11 08/15/2023 16:13:33 Type 2 diabetes mellitus [id number] E11.9 Increase metformin ER to 1000 mg BID with meals Essential hypertension 60074000 I10 BP was elevated in office today. Will change BP med to amlodipine -benazepri l and F/U in 1 month Low back pain [id number] M54.50 Will reassess at next visit if still bothering him Family his tory of Cardiovascular disease [id number] Z82.49 Will need to see if he is able to start/comp lete any of the tests after the of the year that Dr. James has recommende d [id number] Anjel Montgomery MD [facility] [address] [place] [address] 09/12/2023 12:45:07 09/12/2023 13:55:32 Type 2 diabetes mellitus [id number] E11.9 Increase metformin ER to 1000 mg BID with meals Essential hypertension 49225869 I10 D/C amlodipine component due to undesirabl e sexual SE. Restart lisinopril 20 mg and add nebivolol 5 mg Hyperlipidemia 65342284 E78.5 Discuss statins at next visit Health Concerns Section Related Observation LastModified by Organization Detai ls LastModified Time None Recorded Concern Status LastModified by Organization Details LastModified Time None Recorded Advance Directives Directive N: Payers Insurance Date Sequence Insurance Name Policy Number Policy Villagomez Covered Member ID Villagomez Member ID Guarantor Name 09/15/2022 1 [employer] (POS) Familia Kolb Kayleen [id number] Familia Kennedi Kayleen 09/09/2023 1 [place] [id number] Familia Kolb Kayleen [id number] Familia Kennedi Kayleen 06/22/2022 1 [facility] (MEDICAID REPLACEMENT - HMO) [id number] Familia Kolb Kayleen [id number] Familia Beyer Notes Date Note Type Note Provider Name and Address Organization Details Recorded Time 07/17/20 22 text/htm l 46 M here for evaluation of chest painPCP: Dr Funez pain x 4 months, getting worse, substernal , unrelated to activity, assoc with headache, dizziness. No prior history of CAD/ CVA. Denies any PND orthopnea palpitations presyncope syncope. + HTN- BP high+ DM- a1c 6.2+ obesity BMI over 40EKG 07/17/22 : ST 106, normal axis and intervals Anjum James MD [address] [facility], [place], [address], [facility] - [place] & [place] 07/17/2022 16:27:42 07/16/20 23 text/htm l 47 yo WM presents to establish care. Had been seeing Dr. OLSON in the past but not in over a year. Diagnosed with Type 2 diabetes a few years ago. Has been on metformin 500 mg TID. Also on lisinopril 10 mg daily. Still checking BS's daily and says numbers are usually between 120's-150's. Recently seen in [facility] ER and diagnosed with diverticulitis-just finished antibiotics. Also hjad an episode of CP and was referred to Dr. James who evaluated him in his office and set up a stress test but was told he would have to have $4000 up front which he couldn't do. 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 Had lisinopril increased from 10 to 20 mg daily and metformin changed to ER. Recent A1c was 8.6%. HDL was 26 despite him taking fish oil supplements. Anjel Montgomery MD [address], [place], [address], [facility] 08/16/2023 09:37:37 09/12/19 24 text/htm l Presents for F/U. Has been taking metformin ER 2000 mg daily. Also has been taking the generic Lotrel but has started to notice it affecting sexual performance. Anjel Montgomery MD [address], [place], [address], [facility] 09/12/2023 13:57:06
== END 2025-02-02 23:59 | disposition home or self-care (01) ==
LOC: LAB.DROPOF 02-03 14:06
PROVIDERS: PCP Family Medicine; Visit Provider Family Medicine
DX: E11.9 Type 2 diabetes mellitus without complications (principal); M10.9 Gout, unspecified
CPT/HCPCS: 80053; 80061; 83036; 84550; 85025